=== PATIENT | male | born 1980 | race Caucasian/White ===

== ENCOUNTER 2019-05-19 10:15 | Emergency (ER) | payer OTHER, SELFPAY ==
[2019-05-19 10:31] VITALS: BP 145/75; PULSE 95; RESP 20; TEMP 37.4; O2SAT 97
--- NOTE | 2019-05-19 11:21 | ED.URI ---
HPI - URI/Sore Throat General Chief Complaint: Upper Respiratory Infection Stated Complaint: cough/sore throat/headache Time Seen by Provider: 05/19/19 11:10 Source: patient, family and RN notes reviewed Mode of arrival: ambulatory Limitations: no limitations History of Present Illness HPI Narrative: 39-year-old male accompanied by presents to express care with complaints of cough, sore throat,chest is sore from coughing, nasal drainage and headache for the past 24 hours. Patient states that last night he had chills but no fevers, has taken Tylenol for his throat pain. Patient states that his throat is painful to swallow, denies any shortness of breath, palpitations or acute chest pressure. MD elicited complaint: fever, cough, sore throat, rhinorrhea, nasal congestion and other (headache) Pertinent past history: other (tobacco) Onset (ago): day(s) (1) Consistency: constant Severity: moderate Pain scale (0-10): 4 Description of mucous: clear Able to tolerate fluids by mouth: Yes Exacerbating factors: swallowing, exertion and deep breaths Relieving factors: nothing Associated symptoms: chills, headache, rhinorrhea, nasal congestion, sore throat and cough Treatments prior to arrival: acetaminophen Related Data Home Medications Medication Instructions Recorded Confirmed lisinopril 05/19/19 Allergies Allergy/AdvReac Type Severity Reaction Status Date / Time aloe Allergy Unknown HIVES Verified 07/22/18 10:53 Review of Systems Review of Systems: Narrative: CONSTITUTIONAL: no fevers,states chills, or sweats. EYES: Denies visual changes, redness, or discharge. ENT: positive rhinorrhea, congestion, sore throat, no otalgia. CARDIOVASCULAR: Denies chest pain, palpitations, or edema. RESPIRATORY:positive cough denies dyspnea. GASTROINTESTINAL: Denies abdominal pain, nausea, vomiting, or diarrhea. GENITOURINARY: Denies dysuria or hematuria. SKIN: Denies rash or itching. MUSCULOSKELETAL: Denies back pain, joint pain, or myalgia. NEUROLOGIC: positive headache, numbness, or weakness. PSYCHIATRIC: Denies anxiety or depression. All systems reviewed & are unremarkable except as noted in HPI and below PMFSH Past Medical History Medical History (Updated 05/19/19 @ 11:45 by Bonny Dunne NP) Hypertension Obesity Surgical History Surgical History (Updated 05/19/19 @ 11:23 by Bonny Dunne NP) History of carpal tunnel release History of tonsillectomy and adenoidectomy Social History Social History (Updated 05/19/19 @ 12:31 by Bonny Dunne NP) Smoking packs per day: 0.5 Smoking cigarettes per day: 10.0 Years smoked: 20 Smoking pack-years: 10.00 Smoking status: Current every day smoker Tobacco type: cigarettes Living arrangements: with family Gender identity (if verbalized by the patient): Male Comments At time of signature, agree with nursing past medical, surgical, social history. There is no relevant family history pertinent to the presenting complaint Exam Narrative: Exam Narrative: GENERAL: Well-appearing, well-nourished, and in no acute distress. HEAD: Normocephalic, atraumatic. EYES: PERRLA and EOMI. ENT: Nares red, clear rhinorrhea no epistaxis. Mucous membranes moist.TM's normal with good light reflex, throat red with uvula red and swollen, no tonsil enlargement,no exudate or lesions NECK: Supple.lymphadenopathy CHEST: Clear to auscultation. No respiratory distress.SAO2 97% on room air HEART: Regular rate and rhythm. No murmur heard. Normal peripheral pulses. ABDOMEN: Soft, non tender, non distended, normal active bowel sounds. EXTREMITIES: Normal range of motion. No edema. SKIN: Warm, dry, no rash. NEURO: No focal deficits. Alert and oriented x3. Course Vital Signs Vital signs: Vital Signs Temperature 37.4 C 05/19/19 10:31 Pulse Rate 95 05/19/19 10:31 Respiratory Rate 20 05/19/19 10:31 Blood Pressure 145/75 H 05/19/19 10:31 Pulse Oximetry 97 05/19/19 10:31
== END 2019-05-19 12:19 | disposition home or self-care (01) ==
PROVIDERS: Emergency Provider Registered Nurse
DX: J06.9 Acute upper respiratory infection, unspecified (principal); R05 Cough; J02.9 Acute pharyngitis, unspecified; F17.210 Nicotine dependence, cigarettes, uncomplicated; I10 Essential (primary) hypertension; E66.9 Obesity, unspecified; Z68.42 Body mass index [BMI] 45.0-49.9, adult
CPT/HCPCS: 87081; 87880; 99213; G0463

== ENCOUNTER 2019-05-31 15:31 | Emergency (ER) | payer OTHER, SELFPAY ==
--- NOTE | ~2019-05-31 | XR_ITS ---
EXAMINATION: XR chest 2V EXAM DATE: 05/31/2019 16:01 INDICATION: Cough and shortness of breath for over a week. TECHNIQUE: Frontal and lateral projections of the chest obtained and reviewed. Comparison is made to prior examination from 08/21/2016. FINDINGS: No confluent consolidation, pneumothorax or pleural effusion suspected. Cardiomediastinal silhouette is normal. There are no osseous abnormalities identified. IMPRESSION: No acute cardiopulmonary findings. Reviewed, dictated and finalized at location A.
[2019-05-31 15:36] VITALS: BP 150/88; PULSE 84; RESP 22; TEMP 37.2; O2SAT 94
--- NOTE | 2019-05-31 15:36 | ED.GENADULT ---
HPI - General Adult General Chief complaint: Upper Respiratory Infection Stated complaint: cough fever Time Seen by Provider: 05/31/19 15:35 Source: patient Mode of arrival: ambulatory Limitations: no limitations History of Present Illness HPI narrative: 39-year-old male patient presents to the [facility] with complaints of cold symptoms for the past 2 weeks. Patient states he was seen here about a week and half ago and was diagnosed with an upper respiratory infection was given an antibiotic along with steroids. Patient states he is completed the entire course of both antibiotics and steroids but states that his symptoms have continued. Patient complaining of sore throat, cough, shortness of breath denies any fevers that he is aware of. Patient states that he is a smoker but has not been smoking recently. Patient does have a history of high blood pressure. 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 Patient does not currently have a primary doctor at this time. Related Data Home Medications Medication Instructions Recorded Confirmed lisinopril 10 mg PO DAILY 05/31/19 05/31/19 Allergies Allergy/AdvReac Type Severity Reaction Status Date / Time aloe Allergy Unknown HIVES Verified 05/31/19 16:02 Review of Systems Review of Systems: Narrative: CONSTITUTIONAL: Denies fever, chills, or sweats. EYES: Denies visual changes, redness, or discharge. ENT: Denies rhinorrhea, congestion, positive sore throat, denies otalgia. CARDIOVASCULAR: Denies chest pain, palpitations, or edema. RESPIRATORY: Positive cough with dyspnea. GASTROINTESTINAL: Denies abdominal pain, nausea, vomiting, or diarrhea. GENITOURINARY: Denies dysuria or hematuria. SKIN: Denies rash or itching. MUSCULOSKELETAL: Denies back pain, joint pain, or myalgia. NEUROLOGIC: Denies headache, numbness, or weakness. PSYCHIATRIC: Denies anxiety or depression. [facility] Past Medical History Medical History Hypertension Obesity Surgical History Surgical History History of carpal tunnel release History of tonsillectomy and adenoidectomy Social History Social History Smoking packs per day: 0.5 Smoking cigarettes per day: 10.0 Years smoked: 20 Smoking pack-years: 10.00 Smoking status: Current every day smoker Tobacco type: cigarettes Gender identity (if verbalized by the patient): Male Comments At the time of my signature I agree with nursing past medical history, surgical, social, and family history. There is no relevant family history pertinent to the presenting complaint. Exam Narrative: Exam Narrative: GENERAL: Well-appearing, well-nourished, and in no acute distress. HEAD: Normocephalic, atraumatic. EYES: PERRLA and EOMI. ENT: Nares clear, no rhinorrhea or epistaxis. Mucous membranes moist. NECK: Supple. No lymphadenopathy CHEST: Clear to auscultation. No respiratory distress. HEART: Regular rate and rhythm. No murmur heard. Normal peripheral pulses. ABDOMEN: Soft, nontender, nondistended, normal active bowel sounds. EXTREMITIES: Normal range of motion. No edema. SKIN: Warm, dry, no rash. NEURO: No focal deficits. Alert and oriented x3. Course Reevaluation(s) Reevaluation #1: Notify patient he is negative for influenza today but is positive for strep. Discussed with him that his x-ray is negative for any pneumonia at this time. Discussed with patient we will go ahead and discharge him home with an antibiotic for the strep infection along with an inhaler to help with the shortness of breath symptoms. Discussed with patient that given the fact that he may have come into contact with somebody with cold at 19 as well as his symptoms t
== END 2019-05-31 16:25 | disposition home or self-care (01) ==
PROVIDERS: Emergency Provider Nurse Practitioner Family
DX: J02.0 Streptococcal pharyngitis (principal); R05 Cough; I10 Essential (primary) hypertension; E66.9 Obesity, unspecified; F17.210 Nicotine dependence, cigarettes, uncomplicated
CPT/HCPCS: 71046; 87804; 87880; 99213; G0463

== ENCOUNTER 2020-08-11 15:51 | Outpatient (CLI) | payer BC, SELFPAY ==
[2020-08-11 16:12] LABS: Basophils Absolute Auto 0.1 K/mm3 (0.0-0.1); Basophils Percent Auto 0.6 % (0.2-1.2); Eosinophils Absolute Auto 0.4 K/mm3 (0-0.3); Eosinophils Percent Auto 3.1 % (0-4.4); Hematocrit 55.9 % (42.0-52.0); Hemoglobin 18.4 g/dL (14.0-18.0); Immature Granulocyte Absolute 0.03 K/mm3 (0.00-0.031); Immature Granulocyte Percent A 0.2 % (0-0.5); Lymphocytes Percent Auto 33.5 % (18.3-44.2); Mean Corpuscular HGB Conc 32.9 g/dl (32-36); Mean Platelet Volume 10.1 fl (7.4-10.4); Monocytes Absolute Auto 1.1 K/mm3 (0.1-0.6); Monocytes Percent Auto 8.1 % (2.6-8.5); Neutrophils Absolute Auto 7.3 K/mm3 (1.3-6.7); Neutrophils Percent Auto 54.5 % (45.5-73.1); Platelet Count Result 297 k/mm3 (150-375); Red Blood Count 6.58 M/mm3 (4.6-6.20); White Blood Count 13.4 K/mm3 (4.5-10.0)
[2020-08-11 16:25] LABS: Atypical Lymphocytes Present; Platelet Estimate Adequate (Adequate)
[2020-08-11 17:20] LABS: Alanine Aminotransferase 38 U/L (4-50); Albumin Level 4.5 g/dL (3.5-5.1); Alkaline Phosphatase 65 U/L (38-126); Anion Gap 12 mmol/L (8-16); Aspartate Amino Transferase 36 U/L (17-59); Bilirubin,Total 0.4 mg/dL (0.2-1.3); Blood Urea Nitrogen 18 mg/dL (9-20); Calcium 9.8 mg/dL (8.4-10.2); Carbon Dioxide 22 mmol/L (22-30); Chloride 107 mmol/L (98-107); Estimated Glomerular Filt Rate > 60; Glucose 86 mg/dL (75-110); Potassium 4.7 mmol/L (3.4-5.0); Sodium 141 mmol/L (137-145)
[2020-08-14 21:43] LABS: Erythropoietin (EPO) 18.5 mIU/mL (2.6-18.5)
[2020-08-15 16:41] LABS: Testosterone Free 256.4 pg/mL (35.0-155.0); Testosterone Total 906 ng/dL (250-1100)
== END 2020-08-11 15:52 | disposition home or self-care (01) ==
LOC: ANHLAB 15:59
PROVIDERS: Visit Provider Internal Medicine Hematology & Oncology
DX: D75.1 Secondary polycythemia (principal)
CPT/HCPCS: 36415; 80053; 82668; 84402; 84403; 85025

== ENCOUNTER 2021-01-22 10:56 | Emergency (ER) | payer BC, SELFPAY ==
[2021-01-22 11:03] VITALS: BP 164/86; PULSE 88; TEMP 37.2; O2SAT 97
--- NOTE | 2021-01-22 12:17 | ED.EAR ---
HPI - Ear Problem General Chief complaint: Ear Stated complaint: Left Ear pain Time Seen by Provider: 01/22/21 12:07 Source: patient and RN notes reviewed Mode of arrival: ambulatory Limitations: no limitations History of Present Illness HPI Narrative: Patient presents today complaining of left ear pain since last night that is radiating to the jaw causing a headache. Patient also has experiencing muffled hearing. He has attempted to flush his ear out with peroxide as well as using Debrox drops. He currently rates pain 4/10 and describes pain as sharp. He has tried no medication for pain prior to arrival. MD Complaint: ear pain and decreased hearing Related Data Home Medications Medication Instructions Recorded Confirmed dextroamphetamine-amphetamine 15 mg PO DAILY 01/22/21 01/22/21 losartan 25 mg PO DAILY 01/22/21 01/22/21 metformin 500 mg PO DAILY 01/22/21 01/22/21 Allergies Allergy/AdvReac Type Severity Reaction Status Date / Time aloe Allergy Unknown HIVES Verified 01/22/21 11:23 Review of Systems Review of Systems: CONSTITUTIONAL: Denies body aches, fever, chills, or sweats. EYES: Denies visual changes, redness, or discharge. ENT: Denies rhinorrhea, congestion, sore throat. + Left ear pain, decreased hearing CARDIOVASCULAR: Denies chest pain, palpitations, or edema. RESPIRATORY: Denies cough or dyspnea. GASTROINTESTINAL: Denies abdominal pain, nausea, vomiting, or diarrhea. GENITOURINARY: Denies dysuria or hematuria. SKIN: Denies rash, itching, or wounds. MUSCULOSKELETAL: Denies back pain, joint pain, or myalgia. NEUROLOGIC: Denies numbness, tingling, or weakness.+ Headache PSYCH: Denies depression or anxiety. [facility] Past Medical History Medical History (Updated 01/22/21 @ 12:25 by Oanh Tsai, RACHNA, BC) Hypertension Obesity Surgical History Surgical History History of carpal tunnel release History of tonsillectomy and adenoidectomy Social History Social History Smoking packs per day: 1 Smoking cigarettes per day: 20.0 Years smoked: 30 Smoking pack-years: 30.00 Smoking status: Current every day smoker Tobacco type: cigarettes Smokeless tobacco user: chewing tobacco Gender identity (if verbalized by the patient): Male Spiritual care concerns: No Comments At time of signature, I have reviewed and agree with nursing past medical, surgical, social and family history unless otherwise noted. Please see nursing chart for further information. There is no relevant family history pertinent to the presenting complaint Exam Narrative: GENERAL: Well-appearing, well-nourished, and in no acute distress. HEAD: Normocephalic, atraumatic. EYES: EOMI. No redness or drainage. Conjunctivae normal. ENT: Mucous membranes pink and moist. Right TM normal. Left TM normal. Left ear canal is moderately edematous and erythematous and excoriated. No movement or tragal tenderness. NECK: Normal AROM. CHEST: No respiratory distress. EXTREMITIES: Normal range of motion. No edema. SKIN: Warm, dry, no rash. Capillary refill normal. Normal skin turgor. NEURO: No focal deficits. Alert and oriented x3. Gait steady. PSYCH: Normal affect. No signs of depression or anxiety. Course Vital Signs Vital signs: Vital Signs Temperature 99 F 01/22/21 11:03 Pulse Rate 88 01/22/21 11:03 Blood Pressure 164/86 H 01/22/21 11:03 Pulse Oximetry 97 01/22/21 11:03 Temperature 99 F 01/22/21 11:03 Pulse Rate 88 01/22/21 11:03 Blood Pressure 164/86 H 01/22/21 11:03 Pulse Oximetry 97 01/22/21 11:03 Reviewed. Pt has been instructed to follow up with his PCP regarding his elevated blood pressure today. Medical Decision Making Differential Diagnosis Differential Diagnosis: Otitis media, otitis externa, ruptured TM, serous otitis, eustachian tube dysfunction, cerume
== END 2021-01-22 12:30 | disposition home or self-care (01) ==
PROVIDERS: Emergency Provider Nurse Practitioner; PCP Nurse Practitioner Adult Health
DX: H60.502 Unspecified acute noninfective otitis externa, left ear (principal); F17.210 Nicotine dependence, cigarettes, uncomplicated; F17.220 Nicotine dependence, chewing tobacco, uncomplicated; I10 Essential (primary) hypertension; E66.9 Obesity, unspecified; Z68.42 Body mass index [BMI] 45.0-49.9, adult
CPT/HCPCS: 99213; G0463

== ENCOUNTER 2021-12-11 17:50 | Emergency (ER) | payer BC, SELFPAY ==
[2021-12-11 18:00] VITALS: BP 139/86; PULSE 77; RESP 20; TEMP 36.7; O2SAT 97
--- NOTE | 2021-12-11 18:38 | ED.URI ---
HPI - URI/Sore Throat General Chief Complaint: Upper Respiratory Infection Stated Complaint: sore throat cough headache chills Time Seen by Provider: 12/11/21 18:38 Source: patient and RN notes reviewed Mode of arrival: ambulatory Limitations: no limitations History of Present Illness HPI Narrative: 41-year-old male presented for complaint of sinus pressure, congestion, sore throat, cough and diarrhea, onset yesterday. He took a negative COVID test at home today. He denies shortness of breath, wheezing, vomiting, fevers or chills. He has taken Tylenol for symptoms. MD elicited complaint: cough Related Data Home Medications Medication Instructions Recorded Confirmed losartan 25 mg tablet 25 mg PO DAILY 01/22/21 12/11/21 metformin 500 mg tablet,extended 500 mg PO DAILY 01/22/21 12/11/21 release 24 hr aspirin 81 mg tablet,delayed 81 mg PO DAILY 02/28/21 12/11/21 release (Adult Low Dose Aspirin) Allergies Allergy/AdvReac Type Severity Reaction Status Date / Time aloe Allergy Unknown HIVES Verified 12/11/21 18:10 Review of Systems Review of Systems: CONSTITUTIONAL: Endorses malaise, chills, sweats, fever EYES: Denies visual changes, redness, or discharge ENT: Per HPI CARDIOVASCULAR: Denies chest pain, palpitations, edema RESPIRATORY: Reports cough, post nasal drainage. Denies dyspnea GASTROINTESTINAL: Denies abdominal pain SKIN: Denies rash or itching MUSCULOSKELETAL: Endorses myalgia PMFSH Past Medical History Medical History Hypertension Obesity Surgical History Surgical History History of carpal tunnel release History of tonsillectomy and adenoidectomy Social History Social History Smoking packs per day: 1 Smoking cigarettes per day: 20.0 Years smoked: 30 Smoking pack-years: 30.00 Smoking status: Current every day smoker Tobacco type: cigarettes Smokeless tobacco user: chewing tobacco Gender identity (if verbalized by the patient): Male Spiritual care concerns: No Exam Narrative: GENERAL: Ill-appearing, nontoxic EYES: conjunctivae clear ENT: Mucous membranes moist. TMs pearly valdivia with dull light reflex bilaterally; no tragal tenderness. Oropharynx erythematous without lesions or exudate CHEST: Clear to auscultation, breath sounds equal. No wheezing, rhonchi, rales, or stridor. No respiratory distress, speaks in full sentences. ABD: large soft nontender HEART: Regular rate and rhythm. No murmur heard. SKIN: Warm, dry, no rash. NEURO: Alert and oriented x3. PSYCH: Normal mood and affect Course Course Emergency Course: Patient is aware of diagnosis, understands and agrees to treatment plan. Anticipatory guidance given. Patient agrees to follow-up as directed and is aware of reasons to seek care at the emergency department. Portions of this record may have been created with voice recognition software Level of Care: Express Care Visit Vital Signs Vital signs: Vital Signs Temperature 98.0 F 12/11/21 18:00 Pulse Rate 77 12/11/21 18:00 Respiratory Rate 20 12/11/21 18:00 Blood Pressure 139/86 12/11/21 18:00 Pulse Oximetry 97 12/11/21 18:00 Oxygen Delivery Room Air 12/11/21 18:00 Temperature 98.0 F 12/11/21 18:00 Pulse Rate 77 12/11/21 18:00 Respiratory Rate 20 12/11/21 18:00 Blood Pressure 139/86 12/11/21 18:00 Pulse Oximetry 97 12/11/21 18:00 Oxygen Delivery Room Air 12/11/21 18:00 reviewed MDM - URI/Sore Throat MDM Narrative Medical decision making narrative: Flu and strep negative, advised supportive measures and signs/symptoms to go to the ER. Pt is appropriate for outpt treatment and f/u. Differential Diagnosis Differential diagnosis: Likely upper respiratory infection, sinusitis and viral infection Lab Data Labs: Influenza A Screen
== END 2021-12-11 18:53 | disposition home or self-care (01) ==
PROVIDERS: Emergency Provider Nurse Practitioner Family; PCP Nurse Practitioner Adult Health
DX: J06.9 Acute upper respiratory infection, unspecified (principal); F17.210 Nicotine dependence, cigarettes, uncomplicated; F17.220 Nicotine dependence, chewing tobacco, uncomplicated; I10 Essential (primary) hypertension; E66.9 Obesity, unspecified; Z68.42 Body mass index [BMI] 45.0-49.9, adult
CPT/HCPCS: 87081; 87804; 87880; 99213; G0463

== ENCOUNTER 2024-10-25 18:23 | Emergency (ER) | payer OTHER, SELFPAY ==
--- OUTSIDE RECORDS SUMMARY | 2024-10-25 18:25 | XMS_ITS | Clinical Summary ---
Author Organization [facility] Address [address] [address] [place] [address] Phone Care Team Providers Care Retail Store Clerk Name Role Phone Unavailable Primary Care Provider Unavailabl e Allergies Active Allergy Reactions Criticality Noted Date Comments Aloe Other (See Comments) High 08/11/2020 Aloe Vera Rash Low 11/18/2019 Aloe Vera-Dimethicone Hives High 07/28/2018 Medications aspirin (SIXTO CHEWABLE) 81 mg Tablet, Chewable Take 81 mg by mouth daily. Active testosterone cypionate (DEPO-TESTOSTER ONE) 200 mg/mL Oil Inject 200 mg by intramuscular injection every 7 days. Active albuterol HFA 90 mcg inhaler Take 2 Puffs by inhalation. 0 Active losartan (COZAAR) 25 mg tablet Take by mouth. 0 Active follitropin marcella, recombinant (GONAL-F RFF PEN SUBCUT) Inject by subcutaneous injection. Active GONADORELIN HCL INJECTION 50 Units by Injection route twice weekly. Active metFORMIN (GLUCOPHAGE) 500 mg tablet Take 500 mg by mouth 2 times daily with meals. Active Active Problems Problem Noted Date Diagnosed Date Erythrocytosis 08/11/2020 Family History Medical History Relation Name Comments Cancer Father Diabetes Father Diabetes Mother Relation Name Status Comments Brother Alive Daughter Alive Father Mother Alive Sister 1 Alive Sister 2 Alive Son 1 Alive Son 2 Alive Social History Tobacco Use Types Packs/Day Years Used Date Smoking Tobacco: Former Cigarettes Q uit: 05/18/2019 Smokeless Tobacco: Never Alcohol Use Standard Drinks/Week Comments Never 0 (1 standard drink = 0.6 oz pur e alcohol) Sex and Gender Information Value Date Recorded Sex Assigned at Not on file Legal Sex Male 9:37 AM CDT Gender Identity Not on file Sexual Orientation Not on file Last Filed Vital Signs Vital Sign Reading Time Taken Comments Blood Pressure 165/11 12/29/2020 10:57 AM CDT Pulse 88 12/29/2020 10:57 AM CDT Temperature 36.9 C (98.5 F) 08/24/2020 1:31 PM CDT Respiratory Rate 13 11/20/2019 7:37 AM CDT Oxygen Saturation 95% 08/24/2020 1:31 PM CDT Inhaled Oxygen Concentration - - Weight 166.3 kg (366 lb 9.6 oz) 021 10:57 AM CDT Height 180.3 cm (5' 11) 12/29/2020 10: 57 AM CDT Body Mass Index 51.13 12/29/2020 10:57 AM CDT Plan of Treatment Health Maintenance Due Date Last Done Comments DIABETES ANNUAL FOOT EXAM 1998 DIABETES ANNUAL RETINAL EXAM 1998 DIABETES MICROALBUMIN ANNUAL SCREEN 1998 LDL CHOLESTEROL ANNUAL 1998 HEPATITIS B VACCINES (1 of 3 - 19+ 3-dose series) 1999 HPV VACCINES (1 - 3-dose SCD M series) 2007 DTAP/TDAP/TD VACCINES (1 - Tdap) 01/26/2013 01/26/20 13 DIABETES HBA1C Q 6 MONTHS 12/06/2017 06/06/2017 INFLUENZA VACCINE (#1) 2024 0, 01/26/2020, 01/15/2020, Additional history exists Insurance BS BLUE ACCESS/TRUE BLUE PPO Advance Directives For more information, please contact: [phone] * Full Code (Latest Code Status on File) Date Activated Date Inactivated Comments 11/20/2019 5:41 AM 01/08/2020 9:40 AM
--- OUTSIDE RECORDS SUMMARY | 2024-10-25 18:25 | XMS_ITS | Patient Health Record ---
Author Organization [facility] Address [address] [facility] [address] [place] [address] Care Team Providers Care Solder Technician Name Role Phone Laura Martinez Unavailable [phone] Reason For Referral No Information Medications Medication SIG (Take, Route, Frequency, Duration) Notes Start Date End Date Status Amphetamine-Dextroamph etamine 15 MG Tablet Oral 01/03/2023 Active Omeprazole 40 MG Capsule Delayed Release Oral 01/03/2023 Active Nystop 153820 UNIT/GM Powder External 01/03/2023 Active Testosterone *Pick strength-form from Night Up for eRX* 01/03/2023 Active Immunizations Vaccine Route Administration Date Status Comme nts COVID-19 (SARS-COV-2) vaccin e, unspecified Unknown 04/26/2019 Administered Social History Sex Assigned At : Social History Observation Description Sex Assigned At Male Social History Additional Details Category Social Info Options Details Migrated Social History Migrated Social History Alcohol Intake: None 05/14/2022,Tobacco Years: Current every day smoker 05/14/2022 Plan Of Treatment No Information Insurance Providers Payer Name Payer Address Payer Phone Subscriber Number Group Number Insured Name Patient Relationship to Insured Coverage Start Date Coverage End Date [facility] [address] [place] [address] [id number] DORA WALTON Self - patient is the insured Medical (General) History Surgical History Surgery Date(Month/Year) Tonsilectomy/adenoids 04/16/1989 Other 01/18/2022
--- OUTSIDE RECORDS SUMMARY | 2024-10-25 18:25 | XMS_ITS | Clinical Summary ---
Author Organization [facility] Address [address] [place] [address] Phone Care Team Providers Care Coupon And Bond Collection Clerk Name Role Phone Hyun Brothers APRN Primary Care Provider [phone] Allergies Active Allergy Reactions Criticality Noted Date Comments Aloe Vera Rash 11/18/2019 Medications HYDROcodone-arik taminophen (NORCO) 5-325 MG Tablet Take 1-2 Tabs by mouth every 4 hours as needed for Pain. 20 Tab 0 6 Active Additional Information Patient not taking.Reported on 01/29/2020 losartan (COZAAR) 25 MG Tablet Take 50 mg by mouth daily. Active aspirin 81 MG Chewable Tablet Take 325 mg by mouth daily. Active methylPREDNISol one (Medrol) 4 MG Tablet Therapy PackIndications :Cough Use as per instructions on package. 21 Tab 0 Active albuterol (ProAir HFA) 108 (90 Base) MCG/ACT Aerosol SolutionIndicat ions:Cough take 2 Puffs by inhalation every 4 hours as needed for Wheezing or Cough. 1 Inhaler 0 Active metFORMIN (GLUCOPHAGE) 500 MG Tablet Take 500 mg by mouth 2 times daily (with meals). Active metroNIDAZOLE (Flagyl) 500 MG Tablet Take 1 Tablet by mouth 3 times daily. 30 Tablet 2 Active Active Problems No known active problems Social History Tobacco Use Types Packs/Day Years Used Date Smoking Tobacco: Every Day Cigarettes Smokeless Tobacco: Current Chew Alcohol Use Standard Drinks/Week Comments No 0 (1 standard drink = 0.6 oz pur e alcohol) Sex and Gender Information Value Date Recorded Sex Assigned at Not on file Legal Sex Male 7:58 PM CDT Gender Identity Not on file Sexual Orientation Not on file Last Filed Vital Signs Vital Sign Reading Time Taken Comments Blood Pressure 158/78 08/20/2021 7:30 AM CDT Pulse 73 08/20/2021 6:45 AM CDT Temperature 36.9 C (98.4 F) 08/20/2021 3:56 AM CDT Respiratory Rate 18 08/20/2021 6:45 AM CDT Oxygen Saturation 98% 08/20/2021 6:45 AM CDT Inhaled Oxygen Concentration - - Weight 158.8 kg (350 lb) 08/20/2021 3:56 AM CDT Height 180.3 cm (5' 11) 08/20/2021 3:56 AM CDT Body Mass Index 48.82 08/20/2021 3:56 AM CDT Plan of Treatment Health Maintenance Due Date Last Done Comments Hepatitis C Virus (HCV) Screening 1980 TdaP Immunization 1980 Hepatitis B Immunization (1 of 3 - 19+ 3-dose series) 1999 Human Papillomavirus (HPV) Immunization (1 - 3-dose SCDM series) 2007 SARS-COV-2 Immunization ( season) 2023 06/16/2020, 05/21/2020, 05/19/2020 Influenza Immunization (#1) 10/26/202402/2019, 01/26/2020, 01/25/2013 Respiratory Syncytial Virus (RSV) Immunization (Adult) (1 - 1-dose 75+ series) 2055 DTaP/Tdap/Td Immunization Discontinued 01/25/2013 Meningococcal Immunization (ACWY) Aged Out No longer eligible based on patient's age to complete this topic Pneumococcal Immunization Combined Aged Out No longer eligible based on patient's age to complete this topic Rotavirus Immunization Aged Out No lo nger eligible based on patient's age to complete this topic Insurance [facility] Care Teams Coupon And Bond Collection Clerk Relationship Specialty Start Date End Date Hyun Brothers APRN PCP - General Advanced Practice Nurse 01/29/20
[2024-10-25 18:26] VITALS: BP 143/96; PULSE 96; RESP 18; TEMP 37.1; O2SAT 98
--- OUTSIDE RECORDS SUMMARY | 2024-10-25 18:31 | XMS_ITS | Clinical Summary ---
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 Gender Identity Not on file Sexual Orientation Not on file Plan of Treatment Health Maintenance Due Date Last Done Comments Annual Physical 1983 Hepatitis C 1998 Hepatitis B Vaccines (1 of 3 - 19+ 3-dose series) 1999 HPV Vaccines (1 - 3-dose SCD M series) 2007 DTaP, Tdap and Td Vaccines ( 1 - Tdap) 01/26/2013 01/25/2013 COVID-19 Vaccine (2023-2 5 season) 2023 06/16/2020, 05/21/2020, 05/19/2020 Meningococcal B Vaccine Aged Out No l onger eligible based on patient's age to complete this topic Meningococcal Vaccine Aged Out No mary arlin eligible based on patient's age to complete this topic Pneumococcal Vaccine: Pediatrics (0 to 5 Years) and At-Risk Patients (6 to 49 Years) Aged Out No longer eligible b ased on patient's age to complete this topic RSV Immunizations Under 20 Months Aged Out No longer eligible b ased on patient's age to complete this topic [facility] Care Teams Maternity Floor Supervisor Relationship Specialty [place] [address] [place] [address] PCP - General 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
--- OUTSIDE RECORDS SUMMARY | 2024-10-25 18:31 | XMS_ITS | Clinical Summary ---
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 Primary Care Provider + Allergies Active Allergy Reactions Criticality Noted Date Comments Aloe Vera Rash Medium 11/18/2019 Aloe Vera-Dimethicone Hives Medium 07/28/2018 Medications dextroamphetami ne-amphetamine XR (ADDERALL XR) 15 mg 24 hr capsule Take 15 mg by mouth every morning 04/10/2022 Active dextroamphetami ne-amphetamine (ADDERALL) 15 mg tablet TAKE 1 TABLET BY MOUTH 1 TO 2 TIMES DAILY NEEDED FOR ADHD SYMPTOMS ON DAYS WHEN XR IS NOT A GOOD OPTION 04/10/2022 Active testosterone cypionate, micro (testosterone cyp, micro, bulk,) 100 % powder 0 04/05/2022 Active omeprazole (PriLOSEC) 40 mg capsule Take 1 capsule (40 mg total) by mouth 2 (two) times a day 180 capsule 05/03/2022 Active Active Problems Problem Noted Date Diagnosed Date Esophagitis 05/08/2022 Overview (05/08/2022): Added automatically from request for surgery [id number] 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 Minimally tender. There is an area of induration in the superior portion that is nontender. Patient is currently on vancomycin and clindamycin. He had 1 more day left of Bactrim. Denies any fevers or chills. Denies any night sweats. Denies any changes in appetite or energy. Patient did have a leukocytosis of 23.6 on presentation with improvement to 16.4. ESR and CRP are both normal. 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 He states he needs to go to work. CT of the chest showed small focal inflammatory process with no definite organized fluid collection. Patient declined surgical consult inpatient but is okay with following up as an outpatient. Leukocytosis 07/29/2018 Assessment & Plan (07/29/2018 6:29 AM CDT): Patient presented with leukocytosis of 23.6 with improvement this morning to 16.4. He has a draining abscess on his right chest wall. He is currently on Vanco and clindamycin. Elevated blood pressure reading 07/29/2018 Assessment & Plan (07/29/2018 6:29 AM CDT): Patient was in pain at the time. He has never been diagnosed with hypertension. Will continue to monitor. Patient has p.r.n. Hydralazine. Will need outpatient follow-up. Morbid obesity (CMS/HCC) 07/29/2018 Immunizations Immunization Administration Dates Next Due Influenza, Quadrivalent, Spl it, Preservative Free, Intramuscular 01/25/2013 TD Preservative Free 01/25/2013 Surgical History Surgery Date Site/Laterality Comments TONGUE BIOPSY 02/25/2017 - 02/24/2018 CARPAL TUNNEL RELEASE 02/26/2016 - 02/24/2017 STOMACH SURGERY ARM SURGERY Medical History Medical History Date Comments Headache, tension-type Stomach ulcer ADHD (attention deficit hyperactivity disorder) Family History Medical History Relation Name Comments Hypertension Brother Hypertension; Diabetes Father Heart disease Father Cardiovascular disease; Hypertension Father Hypertension; C ause of : Hypertension Lung cancer Father Cancer, lung; C ause of : Cancer, lung Diabetes Mother Diabetes mellit us; Hypertension Mother Hypertension; Other Other 1 Family history of NA; Lung cancer Other 2 Family history of Cancer, lung; Diabetes type II Other 3 Family hist ory of Diabetes mellitus type 2; Osteoarthritis Other 4 Family histor y of Osteoarthritis; Other Sister 2 Alive and well; Relation Name Status Comments Brother Father (Age 56) Mother Other 1 Other 2 Other 3 Other 4 Sister 1 Alive Sister 2 Social History Tobacco Use Types Packs/Day Years Used Date Smoking Tobacco: Every Day Cigarettes Smokeless Tobacco: Current Chew Tobacco Cessation:Ready to Q uit: Not Asked; Counseling Given: Not Answered Comments:& vape Alcohol Use Standard Drinks/Week Comments No 0 (1 standard drink = 0.6 oz pur e alcohol) AUDIT-C Answer Date Recorded Q1: How often do you have a drink containing alcohol? Never 05/03/2022 Q2: How many drinks containi ng alcohol do you have on a typical day when you are drinking? Patient does not drink Q3: How often do you have si x or more drinks on one occasion? 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 Gender Identity Male 09/01/2019 8:41 AM CDT Sexual Orientation Straight 09/01/2019 8: 41 AM CDT Obstetrics History Last Filed Vital Signs Vital Sign Reading Time Taken Comments Blood Pressure 143/100 05/03/2022 2:14 PM SLOT FLOOR SUPERVISOR Pulse 88 05/03/2022 2:14 PM SLOT FLOOR SUPERVISOR Temperature 36 C (96.8 F) 05/03/2022 1:54 PM SLOT FLOOR SUPERVISOR Respiratory Rate 17 05/03/2022 2:14 PM SLOT FLOOR SUPERVISOR Oxygen Saturation 96% 05/03/2022 2:14 PM SLOT FLOOR SUPERVISOR Inhaled Oxygen Concentration - - Weight 130.6 kg (288 lb) 05/03/2022 11:46 AM SLOT FLOOR SUPERVISOR Height 180.3 cm (5' 11) 05/03/2022 11:46 AM SLOT FLOOR SUPERVISOR Body Mass Index 40.17 05/03/2022 11:46 AM SLOT FLOOR SUPERVISOR Plan of Treatment Health Maintenance Due Date Last Done Comments Albumin Creatinine Ratio, Urine 1980 Hepatitis C Screening 1980 Dilated Eye Exam 1980 Foot Exam 1980 Varicella Vaccines (1 of 2 - 13+ 2-dose series) 1993 Hepatitis B Screening 1998 Regular Well Visit/Exam 18-64 1998 Pneumococcal vaccine <65 (1 of 2 - PCV) 1999 HPV Vaccines (1 - 3-dose SCD M series) 2007 DTaP/Tdap/Td Vaccine (1 - Tdap) 01/26/2013 3 Depression Screening 07/29/2019 07/28/2018 Hemoglobin A1C 10/27/2022 04/26/2022 Lipid Panel 04/27/2023 04/26/2022 eGFR 04/27/2023 04/26/2022, 02/26, 07/29/2018, Additional history exists Influenza Vaccine (#1) 2024 01/26/2020, 2012 Procedures Procedure Name Priority Date/Time Associated Diagnosis Comments EGFR Routine 04/26/2022 9:30 AM SLOT FLOOR SUPERVISOR Bariatric surgery status HEMOGLOBIN A1C Routine 04/26/2022 9:30 AM SLOT FLOOR SUPERVISOR Bariatric surgery status LIPID PANEL Routine 04/26/2022 9:30 AM SLOT FLOOR SUPERVISOR Bariatric surgery status from Last 3 Months or Most Recently Relevant to Health Maintenance Results * eGFR (04/26/2022 9:30 AM SLOT FLOOR SUPERVISOR) eGFR 113 mL/min/1. 73 m2 [facility] Comment: Interpretive Data Reference Interval Normal >/= 90 mL/min/1.73m2 Mildly decreased* 60 - 89 mL/min/1.73m2 Mildly to moderately decreased 45 - 59 mL/min/1.73m2 Moderately to severely decreased 30 - 44 mL/min/1.73m2 Severely decreased 15 - 29 mL/min/1.73m2 Kidney Failure < 15 mL/min/1.73m2 *Relative to young adult level Estimated glomerular filtration rate is determined by the 2020 CKD-EPI equation recommended by the National Kidney Foundation (A Unifying Approach to GFR Estimation: Recommendations of the NKF-ASK Task Force on Reassessing the Inclusion of Race in Diagnosing Kidney Disease, JASN 202). The CKD-EPI equation should not be used for patients with unstable renal function and has not been validated in children and those over 70. Current interpretive data was last reviewed 2020. Blood 04/26/2022 9:30 AM SLOT FLOOR SUPERVISOR 04/26/2022 9:42 AM SLOT FLOOR SUPERVISOR Meme Blunt MD LAB BLOOD ORDERABLES Fi nal Result Performing Organization Address [facility] Co de Phone Number [facility] [id number] [address] [facility] [employer] [place], [place] [id number] * Hemoglobin A1c (04/26/2022 9:30 AM SLOT FLOOR SUPERVISOR) Hgb A1C 5.1 4.0 - 5.6 % [facility] Estimated Average Glucose 100 mg/dL [facility] Comment: The ADA recommends reporting an estimated Average Glucose (eAG) with all Hemoglobin A1c results using the equation derived from a study of 507 normal and diabetic adults. Minority populations were underrepresented and children were not included. (Diabetes Care 31:1651-5417, 2008). The eAG is not equivalent to a fasting glucose. Blood 04/26/2022 9:30 AM SLOT FLOOR SUPERVISOR 04/26/2022 9:42 AM SLOT FLOOR SUPERVISOR Meme Blunt MD LAB BLOOD ORDERABLES Fi nal Result Performing Organization Address City/[facility]/ZIP Co de Phone Number [facility] [address] [address] [facility] [employer] [place], [place] [id number] * (ABNORMAL) Lipid panel (04/26/2022 9:30 AM SLOT FLOOR SUPERVISOR) Cholesterol 157 30 - 199 mg/dL [facility] Comment: Interpretive Data Ages < or = 19 years Acceptable: <170 mg/dL Borderline high: 170-199 mg/dL High: >or= 200 mg/dL Ages > or = 20 years Desirable: <200 mg/dL Borderline high: 200-239 mg/dL High: >or= 240 mg/dL Literature References: 1. Expert Panel on Integrated Guidelines for Cardiovascular Health and Risk Reduction in Children and Adolescents. Pediatrics 2011;128:S213 2. NCEP Expert Panel. Circulation 2004;110:227 Current Interpretive Data was last revised on 2017. Triglycerides 109 <=149 mg/dL [facility] Comment: Interpretive Data Ages < or = 9 years Acceptable: <75 mg/dL Borderline high: 75-99 mg/dL High: >or= 100 mg/dL Ages 10 to 20 years Acceptable: <90 mg/dL Borderline high: 90-129 mg/dL High: >or= 130 mg/dL Ages > or = 20 years Desirable: <150 mg/dL Borderline high: 150-199 mg/dL High: 200-499 mg/dL Very high: >or= 499 mg/dL Literature References: 1. Expert Panel on Integrated Guidelines for Cardiovascular Health and Risk Reduction in Children and Adolescents. Pediatrics 2011;128:S213 2. NCEP Expert Panel. Circulation 2004;110:227 Current Interpretive Data was last revised on 2017. HDL 30(L) >=40 mg/dL [facility] Comment: Interpretive Data Ages < or = 19 years Acceptable: >45 mg/dL Borderline low: 40-45 mg/dL Low: <40 mg/dL Ages > or = 20 years Desirable: >or= 60 mg/dL Low: <40 mg/dL Literature References: 1. Expert Panel on Integrated Guidelines for Cardiovascular Health and Risk Reduction in Children and Adolescents. Pediatrics 2011;128:S213 2. NCEP Expert Panel. Circulation 2004;110:227 Current Interpretive Data was last revised on 2017. LDL, calculated 105 <=129 mg/dL [facility] Comment: Interpretive Data Ages < or = 19 years Acceptable: <110 mg/dL Borderline high: 110-129 mg/dL High: >or= 130 mg/dL Ages > or = 20 years Optimal: <100 mg/dL Near optimal: 100-129 mg/dL Borderline high: 130-159 mg/dL High: >160 mg/dL Literature References: 1. Expert Panel on Integrated Guidelines for Cardiovascular Health and Risk Reduction in Children and Adolescents. Pediatrics 2011;128:S213 2. NCEP Expert Panel. Circulation 2004;110:227 Current Interpretive Data was last revised on 2017. Non-HDL Cholesterol 127 mg/dL [facility] Comment: Interpretive Data Ages < or = 19 years Acceptable: <120 mg/dL Borderline high: 120-144 mg/dL High: >145 mg/dL Ages > or = 20 years When triglycerides are >200 mg/dL, Non-HDL cholesterol is a secondary target of therapy with treatment goals that are 30 mg/dL greater than the LDL cholesterol target. Literature References: 1. Expert Panel on Integrated Guidelines for Cardiovascular Health and Risk Reduction in Children and Adolescents. Pediatrics 2011;128:S213 2. NCEP Expert Panel. Circulation 2004;110:227 Current Interpretive Data was last revised on 2017. Chol/HDL ratio 5 [facility] Blood 04/26/2022 9:30 AM SLOT FLOOR SUPERVISOR 04/26/2022 9:42 AM SLOT FLOOR SUPERVISOR us Meme Blunt MD LAB BLOOD ORDERABLES Ed ited Result - Final [facility] [address] [facility]. [facility] [place] [address] from Last 3 Months or Most Recently Relevant to Health Maintenance Additional Health Concerns Infection Onset Date Last Indicated MDR gram neg/ESBL Comment:Patients who received care at a healthcare facility outside of the [place] will be placed in Contact Precautions until infection or colonization with specific highly resistant bacteria can be ruled out. Infection Prevention will arrange screening. Please contact Infection Prevention. 03/22/2022 03/22/2022 Insurance [facility] [place] Advance Directives For more information, please contact: [phone] * Full Code (Latest Code Status on File) Date Activated Date Inactivated Comments 05/03/2022 11:46 AM 05/03/2022 6:51 PM * Full Code Date Activated Date Inactivated Comments 07/29/2018 12:14 AM 07/29/2018 1:31 PM Care Teams Employment Training Specialist Relationship Specialty Start Date End Date Kalyn Francois NP PCP - General Nurse Practitioner 03/22/22
--- NOTE | 2024-10-25 18:41 | ED_ITS ---
HPI - Skin/Abscess/Foreign Bdy General Chief complaint: Skin/Abscess/Foreign Body Stated complaint: Poison Mela Time Seen by Provider: 10/25/24 18:41 Source: patient Mode of arrival: ambulatory Limitations: no limitations History of Present Illness HPI narrative: 44-year-old male presented for complaint of red itchy rash to both arms and legs spreading for over 11 days. Rash started after clearing brush outside. Patient completed a Medrol Dosepak today as prescribed by PCP along with antibiotic ointment and triamcinolone cream. He says he has had no improvement and rash is worsening. Now spreading to abdomen. Denies lip, tongue, or throat swelling, shortness of breath or wheezing. Denies changes to soap, detergent, lotion, or any other exposures. Related Data Allergies Allergy/AdvReac Type Severity Reaction Status Date / Time aloe Allergy Unknown HIVES Verified 10/25/24 18:39 Review of Systems Review of Systems: CONSTITUTIONAL: Denies body aches, fever, chills, or sweats. EYES: Denies visual changes, redness, or discharge. ENT: Denies rhinorrhea, congestion CARDIOVASCULAR: Denies chest pain, palpitations, or edema. RESPIRATORY: Denies cough or dyspnea. GASTROINTESTINAL: Denies abdominal pain, nausea, vomiting, or diarrhea. SKIN: Reports rash MUSCULOSKELETAL: Denies back pain, joint pain, or myalgia. NEUROLOGIC: Denies headache, numbness, tingling, or weakness. [facility] Past Medical History Medical History (Updated 10/25/24 @ 18:55 by Elizabeth Stringer APRN) Obesity Hypertension Surgical History Surgical History History of carpal tunnel release History of tonsillectomy and adenoidectomy Social History Social History Smoking packs per day: 1 Smoking cigarettes per day: 20.0 Years smoked: 30 Smoking pack-years: 30.00 Smoking status: Current every day smoker Tobacco type: cigarettes Smokeless tobacco user: chewing tobacco Living arrangements: with family Gender identity (if verbalized by the patient): Male Spiritual care concerns: No Comments At time of signature, I have reviewed and agree with nursing past medical, surgical, social and family history unless otherwise noted. Please see nursing chart for further information. There is no relevant family history pertinent to the presenting complaint Exam Narrative: GENERAL: Well-appearing EYES: conjunctivae clear, and EOMI. ENT: Mucous membranes moist. Oropharynx without edema, erythema or lesions. NECK: Supple. No lymphadenopathy CHEST: Clear to auscultation. HEART: Regular rate and rhythm. SKIN: Warm, dry. bilateral arms and legs with diffuse large patches of erythematous vesicles consistent with contact dermatitis, some serous drainage noted, scabbing noted, left lower leg with mild swelling and erythema consistent with cellulitis. Few scattered areas to lower abdomen NEURO: Alert and oriented x3. Course Course Emergency Course: Patient is aware of diagnosis, understands and agrees to treatment plan. Anticipatory guidance given. Patient agrees to follow-up as directed and is aware of reasons to seek care at the emergency department. Portions of this record may have been created with voice recognition software Level of Care: Express Care Visit Vital Signs Vital signs: Vital Signs Temperature 98.7 F 10/25/24 18:26 Pulse Rate 96 10/25/24 18:26 Respiratory Rate 18 10/25/24 18:26 Blood Pressure 143/96 H 10/25/24 18:26 Pulse Oximetry 98 10/25/24 18:26 Oxygen Delivery Room Air 10/25/24 18:26 Temperature 98.7 F 10/25/24 18:26 Pulse Rate 96 10/25/24 18:26 Respiratory Rate 18 10/25/24 18:26 Blood Pressure 143/96 H 10/25/24 18:26 Pulse Oximetry 98 10/25/24 18:26 Oxygen Delivery Room Air 10/25/24 18:26 Reviewed MDM - Skin/Abscess/Foreign Bdy MDM Narrative Medical decision making narrative: Discussed physical exam findings. Reviewed RXs will restart steroids, add abx and pepcid. Advised supportive measures and signs/symptoms to go to the ER. Pt is appropriate for outpt treatment and f/u. Differential Diagnosis Differential diagnosis: Likely abscess of skin or subcutaneous tissue, viral exanthem, dermatophytosis, urticaria, herpes zoster, cellulitis, eczema, insect bites, impetigo and contact dermatitis Discharge Plan Discharge Clinical Impression: Contact dermatitis, Cellulitis Patient Disposition: Home Condition: Stable Instructions: Antibiotic Form, Poison Mela (ED) Additional Instructions: Take steroids and Pepcid as directed. You can take Claritin or Zyrtec according to package directions as well for itching Cool compresses to the sites of itching, avoid hot water. Avoid scratching to reduce the risk of infection Keep areas clean and dry Take antibiotic as directed Follow up with your primary care provider as needed in 1 week Go to the ER for worsening symptoms or concerns (lip, tongue, throat swelling/itching, trouble breathing etc) Patient Language: Canadian Prescriptions: New famotidine [Pepcid] 40 mg tablet 40 mg PO DAILY Qty: 10 0RF prednisone 20 mg tablet 20 mg PO DAILY Qty: 18 0RF Rx Instructions: take 3 tablets daily for 3 days, then 2 tablets daily for 3 days then 1 tablet daily for 3 days cephalexin 500 mg capsule 500 mg PO Q6H 5 Days Qty: 20 0RF Follow-up/Referrals: Hyun Brothers APRN [Primary Care Provider, [facility]] Time of Disposition: 18:50
== END 2024-10-25 18:53 | disposition home or self-care (01) ==
PROVIDERS: Emergency Provider Nurse Practitioner Family; PCP Nurse Practitioner Adult Health
DX: L25.9 Unspecified contact dermatitis, unspecified cause (principal); L03.116 Cellulitis of left lower limb; F17.210 Nicotine dependence, cigarettes, uncomplicated; F17.220 Nicotine dependence, chewing tobacco, uncomplicated; I10 Essential (primary) hypertension; E66.9 Obesity, unspecified; Z68.36 Body mass index [BMI] 36.0-36.9, adult
CPT/HCPCS: 99213; G0463

== ENCOUNTER 2025-02-03 18:39 | Emergency (ER) | payer OTHER, SELFPAY ==
[2025-02-03 18:43] VITALS: BP 148/92; PULSE 89; RESP 16; TEMP 36.7; O2SAT 100
--- NOTE | 2025-02-03 19:24 | ED.UPPEXIN ---
HPI - Extremity Injury (Upper) General Chief Complaint: Extremity Injury, Upper Stated Complaint: Left Elbow/Hand Swelling and Pain Time Seen by Provider: 02/03/25 19:00 Source: patient, RN notes reviewed and old records reviewed Mode of arrival: ambulatory Limitations: no limitations History of Present Illness HPI narrative: 44 year old male accompanied by with complaints of having some left elbow pain starting Saturday with no known injury. Patient reports that he has had progressive pain from lateral posterior aspect of his left elbow and going down his left arm to his hand with burning sensation to 3rd 4th and 5th fingers.. Patient reports that he had swelling and redness to his left arm for the past few days. Patient reports that he put on an elastic brace like for tennis elbow during the day yesterday and took off at night which initially did help the discomfort but swelling and redness to left forearm continued. Unable to actually feel the pulse in left radial aspect but strong pulses to left arm present with doppler with nailbeds having brisk capillary refill. patient reports that he has had carpal tunnel surgery on that hand in the past. Onset (ago): day(s) (4 days with no injury) Handedness: ambidextrous Severity scale (1-10): 7 Treatments prior to arrival: cold therapy and other (Tylenol) Related Data Allergies Allergy/AdvReac Type Severity Reaction Status Date / Time aloe Allergy Severe Swelling Verified 02/03/25 19:06 of Lip/Tongue/Throat Review of Systems Review of Systems: CONSTITUTIONAL: Denies fever, chills, or sweats. EYES: Denies visual changes, redness, or discharge. ENT: Denies rhinorrhea, congestion, sore throat, or otalgia. CARDIOVASCULAR: Denies chest pain, palpitations, or edema. RESPIRATORY: Denies cough or dyspnea. GASTROINTESTINAL: Denies abdominal pain, nausea, vomiting, or diarrhea. GENITOURINARY: Denies dysuria or hematuria. SKIN: Denies rash or itching. MUSCULOSKELETAL: Denies back pain, joint pain, or myalgia.Positive for pain to the left arm from posterior elbow down arm and into his hand with burning sensation to the 3rd,4th and 5th fingers of his left hand. Patient has some swelling and redness of his left arm with pulses strong per Doppler to radial and brachial aspects, nail beds have brisk capillary refill, full mobility of left arm and hand NEUROLOGIC: Denies headache, numbness, or weakness. PSYCHIATRIC: Denies anxiety or depression. All systems reviewed & are unremarkable except as noted in HPI and below PMFSH Past Medical History Medical History (Updated 02/04/25 @ 17:11 by Bonny Dunne APRN) Sleep apnea Obesity Hypertension Surgical History Surgical History History of carpal tunnel release History of tonsillectomy and adenoidectomy Social History Social History (Updated 02/03/25 @ 19:55 by Bonny uDnne APRN) Smoking packs per day: 0.5 Smoking cigarettes per day: 10.0 Years smoked: 30 Smoking pack-years: 15.00 Smoking status: Current every day smoker Tobacco type: cigarettes Smokeless tobacco user: chewing tobacco Living arrangements: with family Gender identity (if verbalized by the patient): Male Spiritual care concerns: No Comments At time of signature, agree with nursing past medical, surgical, social and family history. There is no relevant family history pertinent to the presenting complaint Exam Narrative: GENERAL: Well-appearing, well-nourished, and in no acute distress. HEAD: Normocephalic, atraumatic. EYES: PERRLA and EOMI. ENT: Nares clear, no rhinorrhea or epistaxis. Mucous membranes moist.TM's normal with throat pink tonsils absent NECK: Supple.no lymphadenopathy CHEST: Clear to auscultation. No respiratory distress.SAO2 100% on room air HEART: Regular rate and rhythm. No murmur heard. Normal peripheral pulses. ABDOMEN: Soft, nontender, nondistended, normal active bowel sounds. EXTREMITIES: Normal range of motion. noted edema to the left arm. Patient has pain from posterior elbow aspect running down into hand with burning to 4th,5th and 6th fingers with pain, Patient has full mobility of left arm and hand and fingers pulses strong with us of Doppler unable to palpate pulses well by fingertip due to swelling. Patient reports no history of any abnormal blood clotting history or any family blood dyscrasia SKIN: Warm, dry, no rash, no open skin areas on left arm or hand. NEURO: No focal deficits. Alert and oriented x3. Course Course Level of Care: Express Care Visit Vital Signs Vital signs: Vital Signs Temperature 36.7 C 12/10/25 18:43 Pulse Rate 89 02/03/25 18:43 Respiratory Rate 16 02/03/25 18:43 Blood Pressure 148/92 H 02/03/25 18:43 Pulse Oximetry 100 02/03/25 18:43 Oxygen Delivery Room Air 02/03/25 18:43 Temperature 36.7 C 02/03/25 18:43 Pulse Rate 89 02/03/25 18:43 Respiratory Rate 16 02/03/25 18:43 Blood Pressure 148/92 H 02/03/25 18:43 Pulse Oximetry 100 02/03/25 18:43 Oxygen Delivery Room Air 02/03/25 18:43 reviewed MDM MDM Narrative Medical decision making narrative: Patient presents with pain swelling and burning sensation to his left hand with increasing symptoms since Saturday with no injury. Patient instructed to avoid any tight constrictive bands to his left arm, to elevate as much as possible, 5 days of oral steroids and kapoor medication as prescribed.Patient to call his PCP in Am for referral to either ortho or hand surgeon for any further evaluation. Patient received anticipatory guidance and reasons to seek care in ED reviewed with understanding voiced. Differential Diagnosis Differential Diagnosis: Differential diagnostic considerations for upper extremity injury include sprain/strain of wrist, fracture of wrist, finger sprain, dislocation of finger, fracture of hand, dislocation of shoulder, fracture of humerus, fracture of clavicle, laceration, tendon injury, carpal tunnel syndrome.? Critical Care Time Critical Care Time Critical Care Time: No Discharge Plan Discharge Clinical Impression: Pain and swelling of left forearm, Tendinitis Patient Disposition: Home Condition: Stable Instructions: Tendinitis (ED), Arm Pain (ED) Additional Instructions: Tylenol for lesser pain Ibuprofen regularly for the next 2-3 days for the inflammation Prednisone daily starting in am at 40 mg daily for 5 days. Follow-up with orthopedic surgeon or hand surgeon per recommendation, yinka your PCP for referral tomorrow Follow-up with PCP if further problems or concerns Ice to the area 20-30 minutes 4-6 times a day Elevate above heart If your symptoms persist, change or worsen significantly before you can contact your personal physician then please, without delay, go to the emergency department for further evaluation. Follow-up with PCP in 7-10 days or sooner if needed Follow up with PCP soon in regards to your blood pressure which is elevated above threshold for referral. Blood pressure above 120/80 may indicate pre-hypertension. 148/92 Patient Language: Macedonian Prescriptions: New prednisone 20 mg tablet 40 mg PO DAILY Qty: 10 0RF hydrocodone-acetaminophen 7.5-325 mg tablet 1 tablet PO Q8H PRN (Reason: pain) Qty: 10 0RF Follow-up/Referrals: Hyun Brothers APRN [Primary Care Provider, [facility]] Time of Disposition: 20:03 Quality Bhargav Coma Scale Eyes: Open Verbal: Oriented and Alert Motor: Follows Commands Weston Coma Total Score: 15
--- OUTSIDE RECORDS SUMMARY | 2025-02-03 21:16 | XMS_ITS | Clinical Summary ---
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/19 History [...] on file Legal Sex Male 5:45 PM WEATHER ANALYST Gender Identity Male 09/01/2019 8:41 AM CDT Sexual Orientation Straight 09/01/2019 8: 41 AM CDT Last Filed Vital Signs Vital Sign Reading Time Taken Comments Blood Pressure 143/100 05/03/2022 2:14 PM WEATHER ANALYST Pulse 88 05/03/2022 2:14 PM WEATHER ANALYST Temperature 36 C (96.8 F) 05/03/2022 1:54 PM WEATHER ANALYST Respiratory Rate 17 05/03/2022 2:14 PM WEATHER ANALYST Oxygen Saturation 96% 05/03/2022 2:14 PM WEATHER ANALYST Inhaled Oxygen Concentration - - Weight 130.6 kg (288 lb) 05/03/2022 11:46 AM WEATHER ANALYST Height 180.3 cm (5' 11) 05/03/2022 11:46 AM WEATHER ANALYST Body Mass Index 40.17 05/03/2022 11:46 AM WEATHER ANALYST Plan of Treatment Health Maintenance Due Date [...] Diagnosis Comments EGFR Routine 04/26/2022 9:30 AM WEATHER ANALYST Bariatric surgery status HEMOGLOBIN A1C Routine 04/26/2022 9:30 AM WEATHER ANALYST Bariatric surgery status LIPID PANEL Routine 04/26/2022 9:30 AM WEATHER ANALYST Bariatric surgery status from Last 3 Months or Most Recently Relevant to Health Maintenance Results * eGFR (04/26/2022 9:30 AM WEATHER ANALYST) Pathologist [facility] eGFR 113 mL/min/1. 73 m2 [facility] Comment: Interpretive Data Reference Interval Normal >/= [...] of Race in Diagnosing Kidney Disease, JASN 2020). The CKD-EPI equation should not be used for patients with unstable renal function and has not been validated in children and those over 70. Current interpretive data was last reviewed 2020. Blood 04/26/2022 9:30 AM WEATHER ANALYST 04/26/2022 9:42 AM WEATHER ANALYST Meme Blunt MD LAB BLOOD ORDERABLES nal Result Performing Organization Address [facility] Co de Phone Number [facility] [id number] [employer] [facility] [employer] [place], [place] [id number] * Hemoglobin A1c (04/26/2022 9:30 AM WEATHER ANALYST) Hgb A1C 5.1 4.0 - 5.6 % N[facility]OLAS DARBY Estimated Average Glucose 100 mg/dL [facility] Comment: The ADA recommends reporting an estimated Average Glucose (eAG) with all Hemoglobin A1c results using the equation derived from a study of 507 normal and diabetic adults. Minority populations were underrepresented and children were not included. (Diabetes Care 31:1947-5658, 2008). The eAG is not equivalent to a fasting glucose. Blood 04/26/2022 9:30 AM WEATHER ANALYST 04/26/2022 9:42 AM WEATHER ANALYST Meme Blunt MD LAB BLOOD ORDERABLES Fi nal Result Performing Organization Address City/[facility]/ZIP Co de Phone Number [facility] [id number] [employer]. [facility] [place] [address] * (ABNORMAL) Lipid panel (04/26/2022 9:30 AM WEATHER ANALYST) Cholesterol 157 30 - 199 mg/dL [facility] Comment: Interpretive Data Ages < or [...] Pediatrics 2011;128:S213 2. NCEP Expert Panel. Circulation 2003;110:227 Current Interpretive Data was last revised on [...] 5 [facility] Blood 04/26/2022 9:30 AM WEATHER ANALYST 04/26/2022 9:42 AM WEATHER ANALYST Meme Blunt MD LAB BLOOD ORDERABLES Ed ited Result - Final [facility] [id number] [facility]. [facility] [place] [address] from Last 3 Months or Most Recently [...] Please contact Infection Prevention. 03/22/2022 03/22/2022 Insurance [facility] [place] [place] For more information, please contact: [phone] * Full Code (Latest Code Status on File) Date Activated Date Inactivated Comments 05/03/2022 11:46 AM 05/03/2022 6:51 PM * Full Code Date Activated Date Inactivated Comments 07/29/2018 12:14 AM 07/29/2018 1:31 PM Care Teams Vice President Risk Management Relationship Specialty Start Date End Date Kalyn Francois NP PCP - General Nurse Practitioner 03/22/22
--- OUTSIDE RECORDS SUMMARY | 2025-02-03 21:16 | XMS_ITS | Clinical Summary ---
Author Organization [facility] Address [address] [place] [address] Phone Care Team Providers Care Esthetician/Owner Name Role Phone Hyun Brothers APRN Primary Care Provider [phone] Allergies Active Allergy Reactions Criticality Noted Date [...] Virus (HCV) Screening 1980 TdaP Immunization 1980 Varicella Immunization (1 of 2 - 13+ 2-dose series) 1993 Hepatitis B Immunization (1 of 3 - 19+ 3-dose series) 1999 Influenza Immunization (#1) 2024 120 02/2019, 01/26/2020, 01/25/2013 SARS-COV-2 Immunization (2024- season) 2024 06/16/2020, 05/21/2020, 05/19/2020 Respiratory Syncytial Virus (RSV) Immunization (Adult) (1 - 1-dose 75+ series) 2055 DTaP/Tdap/Td Immunization Discontinued 01/25/2013 Human Papillomavirus (HPV) Immunization (No Doses Required) Completed Meningococcal Immunization (ACWY) Aged Out No longer eligible based on patient's age to complete this topic Pneumococcal Immunization Combined Aged Out No longer eligible based on patient's age to complete this topic Rotavirus Immunization Aged Out No lo nger eligible based on patient's age to complete this topic Insurance [facility] Care Teams Esthetician/Owner Relationship Specialty Start Date End Date Hyun Brothers APRN PCP - General Advanced Practice Nurse 01/29/20
--- OUTSIDE RECORDS SUMMARY | 2025-02-03 21:16 | XMS_ITS | Data Portability ---
Author Organization [place] [facility], Main Office Address [address] [place] [address] Assessment Encounter Date Assessment Date Assessment LastModified by Organization Details LastModified Time 05/28/2022 05/28/2022 Assessment: Very severe KAREN, AHI = 109 Hypertension Plan: The following were reviewed and explained to the patient: primary care/referral note [facility] split night sleep study 08/23/19 BMI = 53, AHI = 109, ResMed AirFit F20 full face mask @ 22/16 cmH2O PAP compliance downloaded and interpreted x 20 minutes. Data reviewed and explained to the patient. Average apnea/hypopnea index (AHI) is 0.2. Patient used PAP > 4 hours 96% of the time. PAP is set at 24/14 cmH2O. PAP will be reset at 14-24/4-14 cmH2O. Oxygen supplementation: none Patient is benefiting from PAP therapy. Encouraged patient to maintain PAP use more than 70% of the time. Statement of PAP use and benefits will be sent to the home care store. Educated the patient on problems and solutions associated with positive airway pressure (PAP) use. Difficulty tolerating pressure, mask leaks, intolerance of interface, nasal congestion, claustrophobic response, dry mouth, and unintentional mask removal during sleep were covered. Patient has some difficulty tolerating pressure. Patient is advised to practice wearing PAP daily while awake, lower pressure with or without sleeping on sides, activate PAP ramp feature, have blower checked to make sure pressure is set as prescribed and return to sleep center for consideration of auto-adjusting PAP therapy. Dry mouth is a normal occurrence for people who just start out on PAP therapy because they are not used to air blowing in to the throat to hold open. Dry mouth is exacerbated for people who wear nasal PAP mask and whose jaw drops open during sleep. Not only does this create a much less efficient therapy because of leakage, it also causes dry mouth. There are a couple solutions to help prevent this type of problem. A simple solution would be to wear a chinstrap which essentially holds the jaw in place. A second solution would be a switch to a full face mask which covers both the nose and mouth. Although this is another easy solution, using a full face mask for some could seem claustrophobic or confining. There is no silver bullet solution as no single mask is right for everybody. Sometimes it takes a bit of experimentation to find a PAP mask which best meets the patient's needs as well as fits comfortably. Another tactic is to use a humidifier on your PAP machine. Most new PAP machines have integrated humidifiers. Humidification is blakely when dealing with symptoms of dry mouth because the humidifier can supply both warm and room temperate air. Even a small amount of humidity in the airflow will help nasal passages to stay hydrated. If a person is using both a full face mask and a PAP machine with a heated humidifier and is still experiencing dry mouth, an ill-fitted PAP mask might be causing the problem. Leakage can be caused by a mask that is to large or small, the wrong style mask, the cushion is degraded or simply because the mask's straps aren't adjusted correctly. If leakage occurs, dry air from the room can leak in while humidification escapes. The result is reduced humidification within the circuit and resulting in dry throat and mouth. Finally, beyond factors involving the PAP machine and mask, dry mouth can also be caused or worsened by dehydration. The general recommendation to during eight 8 oz. glasses of water a day might be too little for many people. When people drink large amounts of coffee or other caffeine beverages, or sweat a lot during the day, making sure to rehydrate is an important part of PAP therapy. Patient tends to take of the PAP mask during sleep. We reassured patient that this is common. We address all other areas of headgear/nasal interface problems, especially nasal congestion. Patient can use humidification +/- chinstrap, put low-pressure alarm on blower unit to awaken patient to reposition mask and set alarm at night for patient to check headgear. Provided the patient with a list of local home care stores where positive airway pressure (PAP) units, accouterments, and services are available. Home care store selection is based on patient's insurance carrier. Patient will setup an appointment with [facility] for supplies and pressure adjustments. A major predictor of success with use of PAP is follow-up with both the respiratory supplier and the treating physician. The respiratory supplier optimally will follow-up within two weeks after starting use while the treating physician optimally will follow-up within 90 days after starting therapy to assess adherence and effectiveness of treatment. The download results can show the treating physician information about adherence to treatment, residual AHI while on treatment and presence of large mask leakage. This information is especially helpful if the patient has residual sleepiness despite treatment. General information on sleep disordered breathing, evaluation of sleep disordered breathing, treatment with PAP therapy, and living with PAP therapy were covered. We discussed with the patient the impact of weight on: Sleep disordered breathing Prediabetes Hypertension Mixed hyperlipidemia CHOCO Hypogonadism We discussed with the patient the benefit of PAP therapy on: Sleep disordered breathing ADHD Prediabetes Hypertension CHOCO Polycythemia vera Educated the patient on sleep hygiene measures. Relaxing rituals to rest easy, understanding foods with positive and negative impact on sleep, creating a peaceful sleep environment, timing of exercise, using herbal sleep aids, and practicing sleep-friendly meditation were covered. To determine how much sleep is needed, the patient will assess where he falls on the spectrum, examine what lifestyle factors such as work schedules and stress are affecting the quality and quantity of sleep. In general, adults need 7-9 hours of sleep. Educated the patient regarding foods that promote sleep. These include but are not limited to cherries, bananas, toast, oatmeal, and warm milk. Educated the patient regarding foods and drinks to avoid before bedtime. These include but are not limited to aged cheese, chocolate, spicy foods, tomato-based sauces, soy, ginseng tea and processed meat. Advocated influenza vaccination annually and pneumonia vaccination MAXIMO. Advocated weight loss through diet and exercise. Patient's ideal body weight according to height and gender is up to 185 lbs. Encouraged patient to adjust caloric intake to maintain/achieve ideal body weight, emphasizing on fruits, vegetables, whole grains, and fat-free or low-fat products. These include lean meats, poultry, fish, beans, eggs, and nuts and foods that are low in saturated fats, trans-fats, cholesterol, salt (sodium), and glycemic index. Stressed the importance of regular exercise up to the patient's capacity limits. In this case, we recommend 20 min daily walking, 2 days a week of resistance training. Patient to monitor BP daily and bring records to PCP for further management. Follow-up: 1 month, June 2022 [email or web address] Not available 05/28/2022 11:02:18 Plan of Treatment Reminders Order Date Submit Date Provider Last Modified By Organization Details Last Modified Time Details Appointments None recorded. Lab None recorded. Referral sleep medicine referral - Has been on bipap and feeling bloated and full of air in belly in the morning. 2022 023 Satya Elizabeth MD, [address] [place], [address], 18:57:51 Procedures None recorded. Surgeries None recorded. Imaging US, groin - Hernia? Left groin burning and pain. 2022 [email or web address] [place] [address], [address], [address], [place], [address], 08:49:00 Medication Orders None recorded. Patient TargetsNo targets recorded. Patient Instructions Encounter Date Encounter Id Patient Instructions Last Modified By Organization Details Last Modified Time 05/10/2022 [id number] FU in 6 mo htn, diabetes, gastric sleeve, obese-post sleeve, ADHD, KAREN on bipap [email or web address] Not available 05/13/2022 16:50:48 Reason for Referral Sleep Medicine Referral for Sleep apnea Has been on bipap and feeling bloated and full of air in belly in the morning. Referring Physician: Kalyn Flanagan, Family Medicine, Encounter Date: 05/10/2022 Results Created Date Observation Date Name Description Value Unit Range Abnormal Flag Note LastModifiedBy Organization Detail LastModifiedTime 03/13/1903/13/2021 HEMOG LOBIN A1C HA1C 6.4 % 4.0-6. 0 high Diabe celeste Scree matias Crite cornell: <5.7% Consi stent with absen ce of diabe celeste 5.7-6 .4% Consi stent with incre ased risk for diabe celeste (pred iabet es) >OR=6 .5% Consi stent with diabe celeste REFER ENCE: Diabe celeste Care 2016, 39(Espinoza ppl.1 ):s13 -s22 Not Available [facility] (Lab) [address] [place], [address], 03/13/2021 21:31:24 03/13/19 22 03/13/2021 COMPR EHENS ANILA METAB OLIC PANEL carbon dioxide 26 mmol/ L 22-30 Not Available [facility] (Lab) [address] [place], [address], 03/13/2021 19:24:30 03/13/19 22 03/13/2021 COMPR EHENS ANILA METAB OLIC PANEL sodium 137 mmol/ L 137-14 5 Not Available [facility] (Lab) [address] [place], [address], 03/13/2021 19:24:30 03/13/19 22 03/13/2021 COMPR EHENS ANILA METAB OLIC PANEL potassium 4.5 mmol/ L 3.5-5. 1 Not Available [facility] (Lab) [address] [place], [address], 03/13/2021 19:24:30 03/13/19 22 03/13/2021 COMPR EHENS ANILA METAB OLIC PANEL chloride 103 mmol/ L 98-107 Not Available [facility] (Lab) [address] [place], [address], 03/13/2021 19:24:30 03/13/19 22 03/13/2021 COMPR EHENS ANILA METAB OLIC PANEL agap 12.5 mmol/ L 14-22 low Not Available [facility] (Lab) [address] [place], [address], 03/13/2021 19:24:30 03/13/19 22 03/13/2021 COMPR EHENS ANILA METAB OLIC PANEL glucose 111 mg/dL 70-99 high Not Available [facility] (Lab) [address] [place], [address], 03/13/2021 19:24:30 03/13/19 22 03/13/2021 COMPR EHENS ANILA METAB OLIC PANEL BUN 13 mg/dL 8-19 Not Available [facility] (Lab) [address] [place], [address], 03/13/2021 19:24:30 03/13/19 22 03/13/2021 COMPR EHENS ANILA METAB OLIC PANEL creatinine 1.07 mg/dL 0.66-1 .25 Not Available [facility] (Lab) [address] [place], [address], 03/13/2021 19:24:30 03/13/19 22 03/13/2021 COMPR EHENS ANILA METAB OLIC PANEL aspartate aminotransfe rase 62 U/L 15-46 high Not Available [facility] (Lab) [address] [place], [address], 03/13/2021 19:24:30 03/13/19 22 03/13/2021 COMPR EHENS ANILA METAB OLIC PANEL GFR >60 Refer ence Range : [place] ge GFR Healt hy Adult : >60 mL/mi n/1.7 3 m2 Chron ic Kidne y Disea se: 15-60 mL/mi n/1.7 3 m2 Kidne y Failu re: <15/m L/min /1.73 m2 www.n iddk. nih.g ov The MDRD study equat ion has not been valid ated in child amanuel <18 years of age; pregn ant women ; the elder ly >85 years of age; or in some racia l or ethni c subgr oups, such as Hispa nics. Outsi de the valid ated ariane eters , estim ated GFR is less accur ate, requi ring clini yinka judgm ent on a case- by-ca se basis . Clini yinka inter preta tion for other races and ages must be made by the clini max. The MDRD study equat ion has not been valid ated for the evalu ation of serum creat inine relat ed to nutri dilip l statu s or medic ation usage . For perso ns <18 years of age, a pedia tric GFR calcu lator is avail able on the F websi te: https ://aubree w.ethel abdiy.o rg/pr ofess ional s/kdo qi/gf r_cal culat or Not Available [facility] (Lab) [address] [place], [address], 03/13/2021 19:24:30 03/13/19 22 03/13/2021 COMPR EHENS ANILA METAB OLIC PANEL alkaline phosphatase 71 U/L 38-[address] [facility] (Lab) [address] [place], [address], 03/13/2021 19:24:30 03/13/19 22 03/13/2021 COMPR EHENS ANILA METAB OLIC PANEL alanine aminotransfe rase 49 U/L 0-50 Not Available [facility] (Lab) [address] [place], [address], 03/13/2021 19:24:30 03/13/19 22 03/13/2021 COMPR EHENS ANILA METAB OLIC PANEL bilirubin, total 0.90 mg/dL 0.20-1 .30 Not Available [facility] (Lab) [address] [place], [address], 03/13/2021 19:24:30 03/13/19 22 03/13/2021 COMPR EHENS ANILA METAB OLIC PANEL globulin 3.7 g/dL 2.6-4. 2 Not Available [facility] (Lab) [address] [place], [address], 03/13/2021 19:24:30 03/13/19 22 03/13/2021 COMPR EHENS ANILA METAB OLIC PANEL calcium 8.5 mg/dL 8.4-10 .2 Not Available [facility] (Lab) [address] [place], [address], 03/13/2021 19:24:30 03/13/19 22 03/13/2021 COMPR EHENS ANILA METAB OLIC PANEL total protein 8.2 g/dL 6.3-8. 2 Not Available [facility] (Lab) [address] [place], [address], 03/13/2021 19:24:30 03/13/19 22 03/13/2021 COMPR EHENS ANILA METAB OLIC PANEL albumin 4.5 g/dL 3.4-5. 0 Not Available [facility] (Lab) [address] [place], [address], 03/13/2021 19:24:30 03/13/19 22 03/13/2021 COMPR EHENS ANILA METAB OLIC PANEL A/G ratio 1.2 ratio 1.0-2. 0 Not Available [facility] (Lab) [address] [place], [address], 03/13/2021 19:24:30 03/13/19 22 03/13/2021 LIPID PANEL cholesterol 180 mg/dL 140-19 9 NIH MARSHA NSUS RECOM MENDA TION FOR ZANE STERO L: ADULT CHILD LOW RISK: <200 <170 BORDE RLINE : <200- 239 ----- HIGH RISK: >240 >200 Not Available [facility] (Lab) [address] [place], [address], 03/13/2021 19:24:20 03/13/19 22 03/13/2021 LIPID PANEL triglyceride s 275 mg/dL 0-150 high NIH MARSHA NSUS REPOR T RECOM MENDA TION FOR TRIGL YCERI AZEB: ADULT CHILD LOW RISK: <150 ----- BODER LINE: 150-1 99 ----- HIGH RISK: >200 ----- Not Available [facility] (Lab) [address] [place], [address], 03/13/2021 19:24:20 03/13/19 22 03/13/2021 LIPID PANEL HDL cholesterol 29 mg/dL 40- low Not Available [facility] (Lab) [address] [place], [address], 03/13/2021 19:24:20 03/13/19 22 03/13/2021 LIPID PANEL LDL cholesterol, calculated 96 mg/dL 0-130 NIH MARSHA NSUS REPOR T RECOM MENDA TIONS FOR LDL: ADULT CHILD LOW RISK <130 <110 (OPTI MAL LDL) <100 ----- BORDE RLINE : 130-1 59 ----- HIGH RISK: >160 >130 A TRIGL YCERI DE RESUL T >400 INVAL IDATE S THE CALCU LATIO N FOR LDL FRACT IONAT ION - THE LDL RESUL T WILL NOT BE REPOR ANDERSON. Not Available [facility] (Lab) [address] [place], [address], 03/13/2021 19:24:20 03/13/19 22 03/13/2021 TEST NOT PERFO RMED tnp see commen t no speci men sent for micro album in Not Available [facility] (Lab) [address] [place], [address], 03/13/2021 18:52:41 04/09/19 23 04/09/2022 XR, esoph [facility] [address] [place] [address] Patien t Name: BRAD WALTON Access ion #: [id number] Sex: M : 1980 3 Locati on: RAD Attend ing Physic rashmi: ANTONIETA FLANAGAN Orderi Physic rashmi: ANTONIETA FLANAGAN LE Exam Date: 023 9:08 AM Exam Name: XR BARIUM SWALLO W Admitt ing Diagno sis(es ): RADIOL OGY REPORT - FINAL EXAM: XR BARIUM SWALLO W HISTOR Y: NAUSEA WITH VOMITI NG 41-yea r-old male with gastri c sleeve surger y 8 weeks ago, diffic ulty eating and drinki ng. COMPAR AKSHAT: None availa ble. TECHNI QUE: Fluoro scopic examin ation of the esopha cas was perfor med using double contra st techni que, with the patien t in uprigh t positi on on the fluoro table. The patien t took gas flory ls follow ed by thick liquid barium orally . The esopha cas was evalua anderson fluoro scopic ally. Multip le fluoro scopic spot films were obtain ed. Fluoro time: 1.1 minute s; DAP: 10.192 Gy.cm2 ; 29 fluoro scopic spot views were perfor med. Page 1 of 2 [facility] Karri solorio Name: BRAD WALTON Access ion #: [id number] Sex: M : 1980 3 Exam Date: 023 9:08 AM Exam Name: XR BARIUM SWALLO W Admitt ing Diagno sis(es ): FINDIN GS: No esopha geal divert icula, strict ures, ulcera tions, varice s, or intral uminal fillin g defect s are identi fied. No eviden ce of hiatal hernia . Contra st flows readil y into the stomac h. Gastro esopha geal reflux is visual ized multip le times. Some contra st flows throug h the stomac h into the duoden um, but most of the ingest ed oral contra st is retain ed in the proxim al stomac h. There is no extral uminal extrav asatio n of contra st. There are postop erativ e change s of gastri c sleeve . IMPRES FRANK: 1. Postop erativ e change s of gastri c sleeve with a small amount of oral contra st passin g throug h the stomac h into the duoden um. The majori ty of the ingest ed contra st is retain ed in the proxim al stomac h. This appear ance may be due to a partia l obstru ction at the level of the gastri c body. 2. Multip le episod es of gastro esopha geal reflux visual ized fluoro scopic ally. Create d and electr onical ly signed by: Cruz erwin MD Signed Date: 12:03 PM (CT) Dictat ed by: Cruz erwin MD DD: 12:03 PM (CT) DT: 12:03 PM (CT) Page 2 of 2 [email or web address] [facility] (Imaging) [address] [place], [address], 05/13/2022 16:54:58 05/11/19 23 08/23/2019 polys omnog bar, titra tion study No observ ation record ed. [email or web address] Not Available 2022 16:54:58 Result Notes Documentation Provider Name and Address Organization Details Recorded Time Xr, Esophagram : [facility] [address] [place] [address] Patient Name: BRAD WALTON Sex: M : 1980 Location: [facility] Attending Physician: KALYN FLANAGAN Ordering Physician: KALYN FLANAGAN Exam Date: 04/09/2022 9:08 AM Exam Name: XR BARIUM SWALLOW Admitting Diagnosis(es): RADIOLOGY REPORT - FINAL EXAM: XR BARIUM SWALLOW HISTORY: NAUSEA WITH VOMITING 41-year-old male with gastric sleeve surgery 8 weeks ago, difficulty eating and drinking. COMPARISON: None available. TECHNIQUE: Fluoroscopic examination of the esophagus was performed using double contrast technique, with the patient in upright position on the fluoro table. The patient took gas crystals followed by thick liquid barium orally. The esophagus was evaluated fluoroscopically. Multiple fluoroscopic spot films were obtained. Fluoro time: 1.1 minutes; DAP: 10.192 Gy.cm2; 29 fluoroscopic spot views were performed. Page 1 of 2 [facility] Patient Name: BRAD WALTON Sex: M : 1980 Exam Date: 04/09/2022 9:08 AM Exam Name: XR BARIUM SWALLOW Admitting Diagnosis(es): FINDINGS: No esophageal diverticula, strictures, ulcerations, varices, or intraluminal filling defects are identified. No evidence of hiatal hernia. Contrast flows readily into the stomach. Gastroesophageal reflux is visualized multiple times. Some contrast flows through the stomach into the duodenum, but most of the ingested oral contrast is retained in the proximal stomach. There is no extraluminal extravasation of contrast. There are postoperative changes of gastric sleeve. IMPRESSION: 1. Postoperative changes of gastric sleeve with a small amount of oral contrast passing through the stomach into the duodenum. The majority of the ingested contrast is retained in the proximal stomach. This appearance may be due to a partial obstruction at the level of the gastric body. 2. Multiple episodes of gastroesophageal reflux visualized fluoroscopically. Created and electronically signed by: Cruz Cuellar MD Signed Date: 04/09/2022 12:03 PM (CT) Dictated by: Cruz Cuellar MD (CT) (CT) Page 2 of 2 Kalyn Flanagan NP [address], [place], [place], [address], [employer] 05/13/2022 16:54:58 Problems Name Problem SNOMED Code Status Onset Date Resolution Date Notes Provider Name and Address Organization Details Recorded Time Hypertens anila disorder 02859588 Active 2019 Not Available [facility] [employer] 3 00:47:10 Sleep apnea 47952297 Active 2019 Not Available [facility] 3 00:47:11 COVID-19 709503216 Active 2019 Not Available [facility] 3 00:47:11 Type 2 diabetes mellitus 29631434 Completed 201903/31/2020 Kalyn Flanagan NP [address], [place], [address] , [employer] 3 07:48:09 Hyperinsu linism 87065555 Active 2019 Not Available [facility] 3 00:47:11 Morbid obesity 196209596 Active 2020 Not Available [facility] 3 00:47:09 Male hypogonad ism 76011079 Active 2020 Not Available [facility] 3 00:47:10 Polycythe maritza vera (clinical ) 705361172 Active 2020 Not Available [facility] 3 00:47:09 Smoker 71015926 Active 2021 Not Available [facility] 3 00:47:11 Testoster one level below reference range 521916967 Active 2021 Not Available [facility] 3 00:47:09 History of sleeve gastrecto my 25042147856 9107 Active 2021 Not Available [facility] 3 00:47:09 Attention deficit hyperacti vity disorder, predomina ntly inattenti ve type 44333790 Active 2021 Not Available [facility] 3 00:47:10 Pityriasi s versicolo r 72998945 Active 2021 Not Available [facility] 3 00:47:10 Essential hypertens ion 13776068 Active 2021 Not Available [facility] 3 00:47:10 Hyperlipi demia 49125777 Active 2022 Kalyn Flanagan NP [address], [place], [address] , [employer] 3 07:43:40 Type 2 diabetes mellitus 01234161 Active 2022 Kalyn Flanagan NP [address], [address], [place], [address] , [employer] 3 07:48:09 Long-term current use of testoster one replaceme nt therapy 55257736216 101 Active 2022 Kalyn Flanagan NP [address], [address], [place], [address] , [employer] 3 07:49:46 History of bariatric surgical procedure 102228880 Active 2022 Kalyn Flanagan NP [address], [address], [place], [address] , [employer] 3 08:00:33 Type 2 diabetes mellitus without complicat ion 820928091 Active 2022 Kalyn Flanagan NP [address], [address], [place], [address] , [employer] 3 16:49:08 Obstructi ve sleep apnea syndrome 93435657 Active 2022 Satya Elizabeth MD [address], [address], [place], [address] , [employer] 3 10:46:16 Left inguinal pain 07204404551 593974 Active 2022 Kalyn Flanagan NP [address], [place], [address] , [employer] 3 09:21:02 Notes:Medical History: ADHD COVID infection 01/2020, 01/2021 Nicotine use Obesity with very severe OSAHS, AHI = 109, on BPAP c/o IVRC Prediabetes Hypertension Mixed hyperlipidemia CHOCO Hypogonadism Polycythemia vera Pityriasis versicolor Procedure History: T&A 1988 Right hand tendon/ligament repair 2002 Right CTS release 2014 Gastric sleeve surgery 12/2021 Problem Notes None recorded. Procedures Surgical History Date Name Laterality Status Provider Name and Address Organization Details Recorded Time 01/24/20 22 laparoscopic sleeve gastrectomy completed Not Available [facility] 04/25/2022 00:42:26 02/25/19 15 Carpal tunnel surgery completed Not Available [facility] 04/25/2022 00:42:26 02/25/18 95 Remove tonsils and adenoids completed Not Available [facility] 04/25/2022 00:42:26 Imaging Results None recorded. Procedure Notes None recorded. Medical Equipment None Reported. Allergies Allergen ID Allergen Name Allergen Category Reaction Reaction Severity Criticality Documentation Date Start Date Code Code System Note Provider Name and Address Organization Details Recorded Time 57224 Aloe vera preparati on food,medi cation Not available Not available Not available 05/10/2022 62304 0 RxNorm Kalyn Bennett RN null, [place] [facility] [employer] [employer] 3 10:20:17 Medications Name Sig Start Date Stop Date Status Note LastModified by Organization Details LastModified Time amoxicill in 500 mg capsule TAKE 1 CAPSULE BY MOUTH TWICE DAILY WITH MEALS FOR 10 DAYS 07/04 completed Not Available Not Available Not Available bupropion HCl SR 150 mg tablet,12 hr sustained -release Take 1 tablet twice a day by oral route for 90 days. active Not Available Not Available No t Available azithromy yesy 250 mg tablet TAKE 2 TABLETS (500 MG) BY ORAL ROUTE ONCE DAILY FOR 1 DAY THEN 1 TABLET (250 MG) BY ORAL ROUTE ONCE DAILY FOR 4 DAYS 03/16 completed Not Available Not Available Not Available fluconazo le 150 mg tablet TAKE 1 TABLET BY MOUTH EVERY DAY FOR 1 DAY 02/07 completed Not Available Not Available Not Available benzonata te 200 mg capsule TAKE 1 CAPSULE BY MOUTH THREE TIMES DAILY NEEDED FOR COUGH 02/07 completed Not Available Not Available Not Available hydrocodo ne 5 mg-acetam inophen 325 mg tablet TAKE 1 TABLET BY MOUTH EVERY 4 TO 6 HOURS NEEDED FOR PAIN 02/07 completed Not Available Not Available Not Available gonadorel in HCl 100 mcg solution for injection 50 units 2 x weekly 02/07 completed Not Available Not Available Not Available potassium chloride ER 10 mEq tablet,ex tended release TAKE 1 TAB BY MOUTH ONCE DAILY WITH A MEAL AND FUROSEMI DE active Not Available Not Available No t Available metronida zole 500 mg tablet Take 1 tablet twice a day by oral route. active Not Available Not Available No t Available ciproflox acin 500 mg tablet TAKE 1 TABLET BY MOUTH EVERY 12 HOURS 02/07 completed Not Available Not Available Not Available omeprazol e 40 mg capsule,d elayed release Take 1 capsule twice a day by oral route. active Not Available Not Available No t Available tramadol 50 mg tablet Take 1 tablet every 6 hours by oral route. active Not Available Not Available No t Available terbinafi ne HCl 250 mg tablet Take 1 tablet every day by oral route for 14 days. active Not Available Not Available No t Available famotidin e 20 mg tablet TAKE 1 TABLET BY MOUTH TWICE DAILY active Not Available Not Available No t Available baclofen 10 mg tablet TAKE 1 TABLET BY MOUTH THREE TIMES DAILY 05/10 completed Not Available Not Available Not Available dexametha sone 2 mg tablet TAKE 3 TABLETS( 6MG) BY MOUTH A ONE TIME DOSE active Not Available Not Available No t Available lisinopri l 10 mg tablet TAKE 1 TABLET BY MOUTH ONCE DAILY active Not Available Not Available No t Available losartan 25 mg tablet TAKE 1 TABLET BY MOUTH EVERY DAY active Not Available Not Available No t Available dextroamp hetamine- amphetami ne 15 mg tablet TAKE 1 TABLET BY MOUTH EVERY DAY IN THE MORNING active Not Available Not Available No t Available codeine 10 mg-guaife nesin 100 mg/5 mL oral liquid TAKE 10 ML BY MOUTH EVERY 12 HOURS NEEDED FOR COUGH 02/07 completed Not Available Not Available Not Available lisinopri l 5 mg tablet TAKE 1 TABLET BY MOUTH ONCE DAILY 01/25 completed Not Available Not Available Not Available furosemid e 20 mg tablet TAKE 1 TABLET BY MOUTH ONCE DAILY IN THE MORNING active Not Available Not Available No t Available nystatin 100,000 unit/gram topical powder APPLY TOPICALL Y TO THE AFFECTED AREA TWICE DAILY active Not Available Not Available No t Available methylpre dnisolone 4 mg tablets in a dose pack FOLLOW PACKAGE DIRECTIO NS 03/14 completed Not Available Not Available Not Available albuterol sulfate HFA 90 mcg/actua tion aerosol inhaler INHALE 2 PUFFS BY MOUTH EVERY 4 HOURS NEEDED FOR WHEEZING OR COUGH active Not Available Not Available No t Available losartan 50 mg-hydroc hlorothia zide 12.5 mg tablet TAKE 1 TABLET BY MOUTH EVERY DAY active Not Available Not Available No t Available metformin ER 500 mg tablet,ex tended release 24 hr TAKE 1 TABLET BY MOUTH EVERY DAY active Not Available Not Available No t Available phentermi ne 37.5 mg capsule TAKE 1 CAPSULE BY MOUTH EVERY DAY active Not Available Not Available No t Available metoclopr amide 10 mg tablet TAKE 1 TABLET BY MOUTH EVERY 6 HOURS active Not Available Not Available No t Available amoxicill in 875 mg-potass ium clavulana te 125 mg tablet TAKE 1 TABLET BY MOUTH EVERY 12 HOURS FOR 10 DAYS 03/14 completed Not Available Not Available Not Available dextroamp hetamine- amphetami ne ER 15 mg 24hr capsule,e xtend release TAKE 1 CAPSULE BY MOUTH IN THE MORNING 07/04 completed Not Available Not Available Not Available Asprin Ec Low Dose 81 mg tablet,de layed release Take 1 tablet every day by oral route. 2019 active Not Available Not Available Not Avai lable ciproflox acin 0.3 %-dexamet hasone 0.1 % ear drops,natividad pension SHAKE LIQUID AND INSTILL 4 DROPS TO LEFT EAR EVERY 12 HOURS FOR 7 DAYS 03/14 completed Not Available Not Available Not Available testoster one 1 ml 1x weekly 2022 active From [facility] Not Available Not Available Not Available BD Ultra-Fin e Short Pen Needle 31 gauge x 5/16 USE DIRECTED WITH OZEMPIC WEEKLY 05/11 completed Not Available Not Available Not Available Victoza 3-Jono 0.6 mg/0.1 mL (18 mg/3 mL) subcutane ous pen injector ADMINIST ER 1.2 MG UNDER THE SKIN DAILY FOR 1 WEEK. INCREASE TO 1.8 MG DAILY 03/31 completed Not Available Not Available Not Available Ozempic 0.25 mg or 0.5 mg (2 mg/1.5 mL) subcutane ous pen injector INJECT 0.25 MG UNDER THE SKIN ONCE WEEKLY FOR 4 WEEKS, THEN INCREASE TO 0.5 MG WEEKLY 02/07 completed Not Available Not Available Not Available COVID-19 test specimen collectio n TEST DIRECTED TODAY 02/07 completed Not Available Not Available Not Available Wegovy 0.25 mg/0.5 mL subcutane ous pen injector Inject 0.25 mg every week by subcutan eous route. 01/30 completed Not Available Not Available Not Available Vitals Date Recorded Body mass index (BMI) Body height Oxygen saturation Body temperature Body weight Systolic And Diastolic Provider Name and Address Organization Details Last Updated DateTime 2 48.8 kg/m2 180.34 cm 99 % 98.8 [degF] 953035. 33 g 165/112 mm[Hg] Not Available [employer] 3 00:43:00 Date Recorded Body height Body mass index (BMI) Body weight Respiratory rate Oxygen saturation Body temperature Heart rate Pain severity - 0-10 verbal numeric rating [Score] - Reported Systolic And Diastolic Provider Name and Address Organization Details Last Updated DateTime 3 180.34 cm 40.6 kg/m2 430846. 08 g 16 /min 96 % 98.7 [degF] 102 /min 0 140/90 mm[Hg] Kalyn Bennett RN [facility] [employer] [facility] 3 10:20:54 Date Recorded Body height Body mass index (BMI) Body weight Heart rate Respiratory rate Provider Name and Address Organization Details Last Updated DateTime 05/28/2022 180.34 cm 39.6 kg/m2 770914.2 3 g 89 /min 15 /min Satya Elizabeth MD [address] [facility], [facility] [address], [place], [address] , [facility] [employer] [facility] 3 11:01:45 Date Recorded Body temperature Heart rate Oxygen saturation Systolic And Diastolic Provider Name and Address Organization Details Last Updated DateTime 05/28/2022 98.5 [degF] 89 /min 95 % 140/88 mm[Hg] Radha Rabago MA [facility] 3 10:47:05 Date Recorded Body height Body mass index (BMI) Body weight Body temperature Heart rate Oxygen saturation Systolic And Diastolic Provider Name and Address Organization Details Last Updated DateTime 3 180.34 cm 36.8 kg/m2 685537. 39 g 98.5 [degF] 94 /min 96 % 144/102 mm[Hg] Clare Medrano MA [facility] 3 08:46:10 Date Recorded Body mass index (BMI) Body height Oxygen saturation Heart rate Respiratory rate Body temperature Body weight Systolic And Diastolic Provider Name and Address Organization Details Last Updated DateTime 2 47 kg/m2 180.34 cm 98 % 88 /min 16 /min 98.2 [degF] 956138. 63 g 140/90 mm[Hg] Not Available [facility] 3 00:43:00 Social History Question Answer Notes LastModified by Organization Details LastModified Time Tobacco Smoking Status Current Every Day Smoker Not Available [facility] 04/25/2022 00:40:35 Do You Have An Advance Directive? No Information not available 05/10/2022 Is Blood Transfusion Acceptable In An Emergency? No Not In [place] Information not available 05/10/2022 What Is Your Level Of Caffeine Consumption? Heavy Information not available 05/10/2022 How Much Tobacco Do You Chew? None [id number] Information not available 04/25/2022 What Is Your Code Status? DNR Information not available 05/10/2022 In The 14 Days Before Symptom Onset, Have You Had Close Contact With A Laboratory-confi rmed COVID-19 While That Case Was Ill? No Information not available 05/10/2022 In The 14 Days Before Symptom Onset, Have You Had Close Contact With A Person Who Is Under Investigation For COVID-19 While That Person Was Ill? No Information not available 05/10/2022 How Many Days Of Moderate To Strenuous Exercise, Like A Brisk Walk, Did You Do In The Last 7 Days? 6 Information not available 05/10/2022 Have There Been Any Changes To Your Family Or Social Situation? No Information not available 05/10/2022 Are There Any Guns Present In Your Home? No Information not available 05/10/2022 Do You Use Insect Repellent Routinely? Yes Information not available 05/10/2022 Where Do You Live? [facility] Information not available 05/10/2022 Do You Have A Medical Power Of Internal Sales Engineer? No Information not available 05/10/2022 How Many Children Do You Have? 5 Information not available 05/10/2022 Do You Have Any Pets? Yes Information not available 05/10/2022 Do You Use Protection During Sex? No Information not available 05/10/2022 What Is Your Relationship Status? Information not available 05/10/2022 Do You Use Your Seat Belt Or Car Seat Routinely? Yes Information not available 05/10/2022 Are You Sexually Active? Yes Information not available 05/10/2022 Do You Have Smoke And Carbon Monoxide Detectors In Your Home? Yes Information not available 05/10/2022 Are You Passively Exposed To Smoke? No Information not available 05/10/2022 Are There Any Smokers In Your House? Yes Information not available 05/10/2022 How Much Tobacco Do You Smoke? 0.25 PPD 3-4 Daily [id number] Information not available 04/25/2022 Do You Participate In Social Media? Yes Information not available 05/10/2022 Do You Use Sunscreen Routinely? Yes Information not available 05/10/2022 Have You Recently Traveled Abroad? No Information not available 05/10/2022 Are You Currently In School? No Information not available 05/10/2022 Do You Have Any Dietary Restrictions? Yes Information not available 05/10/2022 Sex: Unknown Functional Status Question Answer Note LastModified by Organizat ion Details LastModified Time Do you use any illicit or recreational drugs? No Information not available 05/10/2022 What is your level of alcohol consumption? None Information not available 05/10/2022 Do you or have you ever used smokeless tobacco? Never used smokeless tobacco [id number] Information not available 04/25/2022 Are you currently employed? Yes Information not available 05/10/2022 Do you or have you ever used e-cigarettes or vape? Never used electronic cigarettes [id number] Information not available 04/25/2022 What is your exercise level? Moderate Information not available 05/10/2022 Mental Status Question Answer Note LastModified by Organization D etails LastModified Time Do you feel stressed (tense, restless, nervous, or anxious, or unable to sleep at night)? [id number] Information not available 05/10/2022 Family History Relationship Description Onset Age of this Age Resolved Age Notes LastModified by Organization Details LastModified Time Father Malignant neoplasm of lung [id number] Not available 04/25/2022 00:42:28 Father Diabetes mellitus [id number] Not available 04/25/2022 00:42:28 Mother Diabetes mellitus [id number] Not available 04/25/2022 00:42:28 Mother Hypertensive disorder [id number] Not available 04/25/2022 00:42:28 Brother Diabetes mellitus [id number] Not available 04/25/2022 00:42:28 Notes:diabetes is prevalent Medical History Condition Response BLINDNESS N RHEUMATIC FEVER N KIDNEY STONES N BLADDER PROBLEMS N OTHER # 1 N POLIO N LUNG DISEASE/DISORDER N RADIATION / CHEMOTHERAPY N COPD N Other # 2 N BLOOD DISEASES N SURGERY N EAR OR HEARING PROBLEMS N MUMPS N FEMALE PROBLEMS / INFECTIONS N BOWEL PROBLEMS N DEPRESSION (INCLUDING POST ) N STROKE/TIA N THYROID DISEASE N ULCERS N BENIGN PROSTATIC HYPERPLASIA N MEASLES N CERVICALGIA N TB SKIN TEST N MYOCARDIAL INFARCTION N PARAPELGIA N OBESITY Y GERD/NAUSEA N ANEURYSM N URINARY/BLADDER/KIDNEY PROBLEMS N INPATIENT PSYCH CARE N CORONARY ARTERY DISEASE (CAD) N MENIERE'S DISEASE N ADDICTION CONCERNS N ENDOMETRIOSIS N USE OF BLOOD THINNERS N SKIN PROBLEMS N EMPHYSEMA N GASTROINTESTINAL DISORDER N MUSCLE,JOINT OR BONE PROBLEMS N GASTROINTESTINAL BLEEDING N BLOOD CLOTS N ASTHMA N CATARACTS N ERECTILE DYSFUNCTION N GI PROBLEMS N CHF N Low Testosterone N NEUROPATHY N INFERTILITY N AIDS/HIV N FRACTURES N VISION/EYE PROBLEMS N LIVER DISEASE N MALE HYPOGONADISM N HYPERTENSION N ANXIETY DISORDER N BLOOD TRANSFUSION N ANEMIA/BLOOD DISORDER N CHRONIC EAR INFECTIONS N BRONCHITIS N TUBERCULOSIS N GLAUCOMA N DIVERTICULITIS N SLEEP APNEA N CHICKENPOX N ALLERGIES/HAYFEVER N INFECTIOUS DISEASE N PROSTATE N HEART ARRHYTHMIA N INSOMNIA N HIGH CHOLESTEROL / HYPERLIPIDEMIA N EYE PROBLEMS N HYPERTHYROIDISM N EATING DISORDER N NEUROLOGICAL PROBLEMS N EDEMA N CHRONIC PAIN SYNDROME N HYPOTHYROIDISM N CONSTIPATION N CAROTID BLOCKAGE N BACK / NECK PROBLEMS N HAVE YOU BEEN HOSPITALIZED OR SEEN IN [facility] IN THE PAST YEAR ? N ATHEROSCLEROSIS N BREAST PROBLEMS N DIALYSIS N ECZEMA N FIBROMYALGIA N OSTEOPOROSIS N ARTHRITIS N NO SIGNIFICANT PAST MEDICAL HISTORY N APPENDICITIS N DIABETES, TYPE N BAD TEETH N HEARTBURN / REFLUX N ADD/ADHD N AUTISM SPECTRUM DISORDER (ASD) N HEPATITIS / LIVER DISEASE N PULMONARY DISEASE N GOUT N SLEEP DISORDER N ALZHEIMER'S DISEASE N PAIN N DEMENTIA N HERPES N SEIZURES/EPILEPSY N HEADACHES/MIGRAINES N VASCULAR DISEASE N PACEMAKER N DIZZINESS N HEART DISEASE/HEART PROBLEMS N KIDNEY DISEASE N SCARLET FEVER N MULTIPLE SCLEROSIS N DEVELOPMENTAL OR BEHAVIORAL DISORDERS N MENTAL DISORDER/ILLNESS N CANCER: SPECIFY N CARDIAC ARRHYTHMIA N PNEUMONIA N ANESTHESIA COMPLICATIONS N ATRIAL FIBRILLATION N PULMONARY EMBOLISM N AUTOIMMUNE DISEASE N Immunizations Vaccine Type Date Status Note Provider Nam e and Address Organization Details Recorded Time COVID-19, mRNA, LNP-S, PF, 100 mcg/0.5mL dose or 50 mcg/0.25mL dose 1 completed Not Available [facility] 04/25/2022 00:54:08 Influenza, split virus, quadrivalent, preservative 0 completed Not Available [facility] 04/25/2022 00:54:08 Influenza, split virus, quadrivalent, PF 0 completed Not Available [facility] 04/25/2022 00:54:09 Past Encounters Encounter ID Performer Location Encounter Start Date Encounter Closed Date Diagnosis/Indication Diagnosis SNOMED-CT Code Diagnosis ICD10 Code Diagnosis IMO Codes Diagnosis Note [id number] [facility] [address] [place] [address] 04/28/2020 00:00:00 04/28/2020 13:57:26 [id number] [facility] [address] [place] [address] 05/26/2020 00:00:00 05/26/2020 11:16:15 [id number] [facility] [address] [place] [address] 06/27/2020 00:00:00 06/27/2020 14:50:41 [id number] [facility] [address] [place] [address] 08/01/2020 00:00:00 08/01/2020 09:13:21 [id number] Moe Leonardo MD [place] [place] [facility] [place] [address] [place] [address] 01/30/2021 00:00:00 01/30/2021 14:20:45 [id number] Moe Leonardo MD [facility] [place] [facility] [address] [place] [address] 03/16/2021 00:00:00 03/16/2021 08:39:43 [id number] Epifanio Mclaughlin MD [facility]_[address] [address] 02/07/2022 00:00:00 02/07/2022 16:46:50 [id number] Kalyn Flanagan NP [facility]_[address] [address] 05/10/2022 10:06:50 05/10/2022 11:02:02 Morbid obesity 433580453 E66.01 Gastric sleeve Dec 2021 In [facility]. Type 2 marilyn betes mellitus without complication 326189153 E11.9 BS levels ok. No longer on metformin. A1C 5.1 Per patient report. History of sleeve gastrectomy [id number] 55039 Z90.3 Losing weight well. Omeprazole 40 mg po daily. Hypertensive disorder 38 222252 I10 Loser pike 50 mg-hctz 12.5 mg pro daily. Sleep apnea 89623580 G47 .30 Sleep medicine referral made. Needing adjustment to BiPap machine. [id number] Satya Elizabeth MD [facility] [place] [address] [address] 05/28/2022 10:15:19 05/29/2022 08:23:59 Obstructive sleep apnea syndrome 98409330 G47.33 [id number] Kalyn Flanagan NP [facility]_[address] [address] 08/01/2022 08:29:13 08/01/2022 12:24:50 Left inguinal pain 0839999152 9855693 R10.32 US left groin ordered. 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 Health Concerns Section Related Observation LastModified by Organization Detai ls LastModified Time None Recorded Concern Status LastModified by Organization Details LastModified Time None Recorded Advance Directives Directive N: Payers Insurance Date Sequence Insurance Name Policy Number Policy Duenas Covered Member ID Duenas Member ID Guarantor Name 11/05/2022 1 [place] [id number] Brad Walton [id number] Brad Walton Notes Date Note Type Note Provider Name and Address Organization Details Recorded Time 05/10/2022 text/html Here with for Weight- down 50 lbs in 3 mo.Gastric sleeve post dilation- Eating well since esophageal dilation. Sleeping better and having more energy. ADHD- [place] flower a bariatric surgeon says ER form of med is ok. Seeing Laura cristofer Psych appt on 05/14/22. No need to change current meds as psych will take over on Saturday. Essential htn- stable. DM- Metformin ER 500 mg.KAREN- bipap. Feeling like the pressure is too much and blowing air into abdomen- feeling bloated When waking up and belching first thing. Kalyn Flanagan NP [address] [place] [address], [address], [facility] [employer] 05/13/2022 16:55:22 05/28/2022 text/html Primary care/Referring provider: Kalyn Flanagan NP At home since 2019, the patient uses a [employer]Med AirCurve 10 autoset unit with heated humidification. The patient does not need the ramp to start low and go up slowly on the pressure anymore. There is some xerostomia in a.m. There is no hose/mask condensation with water.The patient wears a [employer] large AirFit F20 full face mask without chin strap. There is no claustrophobia, no nostril/nose bridge irritation, no facial rash, no facial numbness, no nosebleeding. His BMI has dropped from 53 during sleep study in 2019 to 40 today after gastric sleeve surgery in 12/2021. Since 04/2022, the patient started to feel the pressure is too high and he would pull the mask off in the middle of his sleep unaware. The patient feels more refreshed upon waking and daytime alertness is improved. Energy levels are sustained for the remainder of the day. At home, the patient sleeps from and wakes up with an alarm. Snoring: heavy, since .Snorting: noChoking: yesCoughing: yesGasping: yesGagging: yesSighing: yesWitnessed apnea: yesTwitching or jerking of leg(s), arm(s), body, head: noTeeth grinding: noTeeth clenching: noSleeptalking: noSleepwalking: noSleep crying: noBedwetting: noTongue/lip/gum/cheek biting: noSleeping with open mouth: yesSleep paralysis: noHypnagogic hallucinations: noHypnopompic hallucinations: noVivid dreams: yesDifficulty with sleep onset: noDifficulty with sleep maintenance: yesSleep interruptions: nocturia x 1Patient wakes up with: fatigue, xerostomia, sore throat, hoarse voice, headaches, disorientation, cognitive impairment, mobility impairment, dexterity impairmentDaytime cataplexy: noMorning hypersomnolence: yesAfternoon hypersomnolence: yesCaffeine sources in diet: coffee 164 oz per day, soda 10 cans per day, chocolate 1 candy bar per day Associated medical and psychiatric conditions:Congestive heart failure: noCoronary artery disease: noMyocardial infarction: noHypertension: yesStroke: noBronchial asthma: noChronic obstructive pulmonary disease: noDepression: noBipolar disorder: noAnxiety: noPanic disorder: noPosttraumatic stress disorder: noAttention deficit and hyperactivity disorder: yesObsessive Compulsive disorder: noSchizophrenia: noSchizoaffective disorder: noPersonality disorder: noChronic analgesic use: noChronic sedative/hypnotic use: no EPWORTH SLEEPINESS SCALE (ESS) CHANCE OF DOZING SCORE0 = would never doze1 = slight chance of dozing2 = moderate chance of dozing3 = high chance of dozing SITUATION AND CHANCE OF DOZINGSitting and reading - 0Watching television - 0Sitting inactive in a public place (e.g. a theater or meeting) - 0As a passenger in a car for an hour without a break - 2Lying down to rest in the afternoon when circumstances permit - 1Sitting and talking to someone - 0Sitting quietly after lunch without alcohol - 0In a car, while stopped for a few minutes in the traffic - 0TOTAL SCORE 3Subjectively, patient has a slight chance of dozing. Satya Elizabeth MD [address], [facility] [address], [place], [address], [facility] [employer] [facility] 05/28/2022 11:03:23 08/01/2022 text/html Here for hernia Having some left lower abd pain and burning. Off on for 1 mo and then opened pool this weekend and almost couldn't get out of the pool.Not feeling bulge, no lump.Has a constant burning nerve type pain.Pain noticed with bending down and crossing legs.No change in BM.Urinating fine. no back pain.Diet normal. Did ju-jitsu class right after pain started, but pain flared days after the class. Kalyn Flanagan NP [address], [facility] [address], [place], [address], [employer] [facility] 08/02/2022 08:05:27
--- OUTSIDE RECORDS SUMMARY | 2025-02-03 21:16 | XMS_ITS | Patient Health Record ---
Author Organization [facility] [employer] Address [address] [facility] [address] [place] [address] Care Team Providers Care Furniture Technician Name Role Phone Laura Martinez Unavailable [phone] Reason For Referral No Information Medications Medication SIG (Take, Route, Frequency, Duration) Notes Start Date End Date Status Amphetamine-Dextroamph etamine 15 MG Tablet Oral 01/03/2023 Active Omeprazole 40 MG Capsule Delayed Release Oral 01/03/2023 Active Nystop 938866 UNIT/GM Powder External 01/03/2023 Active Testosterone *Pick strength-form from [employer]ugg for eRX* 01/03/2023 Active Immunizations Vaccine Route [...] Insured Coverage Start Date Coverage End Date [facility] [address] [place] [address] [id number] DORA WALTON Self - patient is the insured Medical (General) History Surgical History Surgery Date(Month/Year) Tonsilectomy/adenoids 04/16/1989 Other 01/18/2022
--- OUTSIDE RECORDS SUMMARY | 2025-02-03 21:16 | XMS_ITS | Data Portability ---
Author Organization [facility] LOUI[facility]ivian Villarreal Address [address] [place] [address] Care Team Providers Care Pond Sawyer Name Role Phone KADEN SCHAEFER Sleep Medicine ROBERT BLANC Primary Care Provider Assessment No assessment recorded. Plan of Treatment Reminders Order Date Submit Date Provider Last Modified By Organization Details Last Modified Time Details Appointments None recorded. Lab None recorded. Referral None recorded. Procedures None recorded. Surgeries None recorded. Imaging None recorded. Medication Orders Medrol (Jono) 4 mg tablets in a dose pack 2024 025 [id number] [address] [place], [id number], 5 15:14:53 triamcinolo ne acetonide 0.1 % topical cream 2024 025 [facility] #78543, [address], [place], [place], [id number], 5 15:14:52 mupirocin 2 % topical ointment 2024 025 [facility] #63345, [address] [place] [place], [id number], 5 15:14:52 amoxicillin 500 mg capsule [email or web address] [place] [address] [facility] #49622, [address] [place] [place], [place], [id number], 5 15:13:14 amoxicillin 500 mg capsule 2022 023 [email or web address] [facility] #57268, [address], [place], [place], [id number], 5 15:13:14 furosemide 20 mg tablet 2019 020 [facility], [address] [place] [address], [address], 3 12:18:54 Klor-Con 10 mEq tablet,exte nded release 2019 020 [facility], [address] [place] [address], [id number], 3 12:18:57 Patient TargetsNo targets recorded. Patient Instructions Encounter Date Encounter Id Patient Instructions Last Modified By Organization Details Last Modified Time 10/21/2019 [id number] deciding about using medicines to quit smoking ssuthan Not available 10/21/2019 16:19:00 Quitting Tobacco : Care Instructions ssuthan Not available 10/21/2019 16:19:00 When You Want to Lose Weight: Care Instructions ssuthan Not available 10/21/2019 16:19:00 11/23/2019 [id number] deciding about using medicines to quit smoking ssuthan Not available 11/23/2019 15:33:38 Quitting Tobacco : Care Instructions ssuthan Not available 11/23/2019 15:33:38 leg and ankle edema: care instructions ssuthan Not available 11/23/2019 15:33:38 albumin-creatini n e ratio: about this test ssuthan Not available 11/23/2019 15:33:38 sleep apnea: car e instructions ssuthan Not available 11/23/2019 15:33:38 05/29/2022 [id number] strep throat: care instructions Not available 06/08/2022 10:26:52 10/17/2023 [id number] strep throat: care instructions Not available 10/17/2023 13:57:35 10/19/2024 [id number] poison chris, oak, and sumac: care instructions Not available 12/07/2024 11:10:18 Reason for Referral None Reported. Results Created Date Observation Date Name Description Value Unit Range Abnormal Flag Note LastModifiedBy Organization Detail LastModifiedTime 03/13/19 22 03/13/2021 Hemog lobin A1c/H emogl obin. total in Blood by HPLC hemoglobin A1C/hemoglob in.total in blood text: 4.0-6. 0 high Diabe celeste Scree matias Crite cornell: <5.7% Consi stent with absen ce of diabe celeste 5.7-6 .4% Consi stent with incre ased risk for diabe celeste (pred iabet es) >OR=6 .5% Consi stent with diabe celeste REFER ENCE: Diabe celeste Care 2016, 39(Espinoza ppl.1 ):s13 -s22 Not Available Not Available 10/19/2024 15:07:24 Result Notes None recorded. Problems Name Problem SNOMED Code Status Onset Date Resolution Date Notes Provider Name and Address Organization Details Recorded Time Insect bite - wound 245667868 Active 2018 ALVA Tran Attn: Accounting, [address] [place], [address], [facility] 9 12:24:34 Elevated blood-pre ssure reading without diagnosis of hypertens ion 922303226 Active 2018 ALVA Tran Attn: Accounting, [address] [facility], [place], [address], [facility] 9 12:25:00 Essential hypertens ion 21595362 Active 2019 Esther strauss, [place] - [facility] 0 17:40:26 Chronic cough 15313700 Active 2019 Robert Blanc MD Attn: Accounting, [address] [facility], [place], [address], [facility] 0 10:35:54 Microalbu minuria 637982546 Active 2019 On losartan Robert Blanc MD Attn: Accounting, [address] [place], [address], [place] [facility] 0 12:59:18 Obstructi ve sleep apnea syndrome 95733248 Active 2019 Robert Blanc MD Attn: Accounting, [address] [place], [address], [place] [facility] 0 15:59:00 Gastroeso phageal reflux disease without esophagit is 177069503 Active 2019 Robert Blanc MD Attn: Accounting, [address] [place], [address], [facility] 0 15:59:01 Tobacco dependenc e syndrome 57591613 Active 2019 Robert Blanc MD Attn: Accounting, [address] [place], [address], [facility] 0 16:18:45 Problem Notes None recorded. Procedures Surgical History Date Name Laterality Status Provider Name and Address Organization Details Recorded Time Carpal tunnel surgery completed Robert Blanc MD Attn: Accounting,[address] [place], [address], [facility] 07/14/2019 10:38:31 tonsilectomy/ adenoids completed Robert Blanc MD Attn: [facility],[address] [place], [address], [facility] 07/14/2019 10:38:43 Imaging Results None recorded. Procedure Notes None recorded. Medical Equipment None Reported. Allergies Allergen ID Allergen Name Allergen Category Reaction Reaction Severity Criticality Documentation Date Start Date Code Code System Note Provider Name and Address Organization Details Recorded Time 908637 aloe extract food,medi cation other severe Not available 05/23/2017 83809 [facility] JESSICA Martinez, [place] - [facility] 8 16:44:41 Medications Name Sig Start Date Stop Date Status Note LastModified by Organization Details LastModified Time amoxicillin 500 mg capsule TAKE 1 CAPSULE BY MOUTH TWICE DAILY WITH MEALS FOR 10 DAYS 10/19 completed Not Available Not Available Not Available Klor-Con 10 mEq tablet,exte nded release Take 1 tablet every day by oral route with meals. 05/31 completed Not Available Not Available Not Available clindamycin HCl 300 mg capsule 08/07 completed Not Available Not Available Not Available azithromyci n 250 mg tablet 07/13 completed Not Available Not Available Not Available ibuprofen 800 mg tablet 08/07 completed Not Available Not Available Not Available fluconazole 150 mg tablet TAKE 1 TABLET BY MOUTH EVERY DAY FOR 1 DAY 10/16 completed Not Available Not Available Not Available benzonatate 200 mg capsule TAKE 1 CAPSULE BY MOUTH THREE TIMES DAILY NEEDED FOR COUGH 10/16 completed Not Available Not Available Not Available Nystop 100,000 unit/gram topical powder APPLY TOPICALLY TO THE AFFECTED AREA TWICE DAILY 10/16 completed Not Available Not Available Not Available famotidine 40 mg tablet TAKE 1 TABLET BY MOUTH DAILY active Not Available Not Available No t Available metronidazo le 500 mg tablet TAKE 1 TABLET BY MOUTH TWICE DAILY 10/16 completed Not Available Not Available Not Available ciprofloxac in 500 mg tablet TAKE 1 TABLET BY MOUTH EVERY 12 HOURS 10/16 completed Not Available Not Available Not Available sulfamethox azole 800 mg-trimetho prim 160 mg tablet 08/07 completed Not Available Not Available Not Available omeprazole 40 mg capsule,del ayed release 10/16 completed Not Available Not Available Not Available doxycycline monohydrate 100 mg tablet 08/07 completed Not Available Not Available Not Available tramadol 50 mg tablet TAKE 1 TABLET BY MOUTH EVERY 6 HOURS 10/16 completed Not Available Not Available Not Available triamcinolo ne acetonide 0.1 % topical cream APPLY THIN LAYER TOPICALLY TO THE AFFECTED AREA TWICE DAILY FOR 7 DAYS active Not Available Not Available No t Available famotidine 20 mg tablet 1 tab BID OPRN 11/22 completed Not Available Not Available Not Available baclofen 10 mg tablet TAKE 1 TABLET BY MOUTH THREE TIMES DAILY 10/16 completed Not Available Not Available Not Available dexamethaso ne 2 mg tablet 07/13 completed Not Available Not Available Not Available cephalexin 500 mg capsule TAKE 1 CAPSULE BY MOUTH EVERY 6 HOURS FOR 5 DAYS active Not Available Not Available No t Available neomycin-po lymyxin-dex ameth 3.5 mg/mL-10,00 0 unit/mL-0.1 % eye drops 08/07 completed Not Available Not Available Not Available lisinopril 10 mg tablet Take 1 tablet every day by oral route. 06/29 completed Not Available Not Available Not Available losartan 25 mg tablet Take 1 tablet by mouth once daily 05/31 completed Not Available Not Available Not Available dextroamphe tamine-amph etamine 15 mg tablet TAKE 1 TABLET BY MOUTH EVERY DAY IN THE MORNING 10/16 completed Not Available Not Available Not Available codeine 10 mg-guaifene sin 100 mg/5 mL oral liquid TAKE 10 ML BY MOUTH EVERY 12 HOURS NEEDED FOR COUGH 10/16 completed Not Available Not Available Not Available lisinopril 5 mg tablet Take 1 tablet every day by oral route. 06/29 completed Not Available Not Available Not Available mupirocin 2 % topical ointment APPLY A SMALL AMOUNT TO THE AFFECTED AREA THREE TIMES DAILY active Not Available Not Available No t Available furosemide 20 mg tablet Take 1 tablet every day by oral route in the morning. 05/31 completed Not Available Not Available Not Available methylpredn isolone 4 mg tablets in a dose pack FOLLOW PACKAGE DIRECTION S active Not Available Not Available No t Available albuterol sulfate HFA 90 mcg/actuati on aerosol inhaler 09/13 completed Not Available Not Available Not Available losartan 50 mg-hydrochl orothiazide 12.5 mg tablet TAKE 1 TABLET BY MOUTH EVERY DAY 10/16 completed Not Available Not Available Not Available metformin ER 500 mg tablet,exte nded release 24 hr TAKE 1 TABLET BY MOUTH EVERY DAY 10/16 completed Not Available Not Available Not Available metoclopram peña 10 mg tablet TAKE 1 TABLET BY MOUTH EVERY 6 HOURS 10/16 completed Not Available Not Available Not Available dextroamphe tamine-amph etamine ER 15 mg 24hr capsule,ext end release TAKE 1 CAPSULE BY MOUTH IN THE MORNING 10/16 completed Not Available Not Available Not Available cyclobenzap rine 5 mg tablet 08/07 completed Not Available Not Available Not Available omeprazole 10/16 completed Not Available Not Available Not Available Vitals Date Recorded Body height Body mass index (BMI) Body weight Provider Name and Address Organization Details Last Updated DateTime 10/19/2024 180.34 cm 36.3 kg/m2 009136.02 g AISHA De Leon NP Attn: Accounting,[address] [facility], [place], [address], [facility] 10/19/2024 15:13:08 Date Recorded Body height Provider Name an d Address Organization Details Last Updated DateTime 10/21/2019 180.34 cm Glenis Vernon [facility] 0 15:27:58 Date Recorded Body height Provider Name an d Address Organization Details Last Updated DateTime 11/23/2019 180.34 cm Glenis Vernon, [facility] 0 13:33:45 Social History Question Answer Notes LastModified by [employer] Details LastModified Time Tobacco Smoking Status Former Smoker Quit in 3 months ago Connie Kumari MA [facility], [facility] 09/14/2019 15:20:26 What Was The Date Of Your Most Recent Tobacco Screening? 11/23/2019 Information not available 11/23/2019 How Much Tobacco Do You Smoke? 1 PPD Information not available 05/23/2017 On What Date Was Tobacco Cessation Counseling Provided? 11/23/2019 Information not available 11/23/2019 How Many Years Have You Smoked Tobacco? 20 Information not available 05/23/2017 Sex: Unknown Functional Status Question Answer Note LastModified by [employer] Details LastModified Time Do you or have you ever used smokeless tobacco? Never used smokeless tobacco Information not available 09/14/2019 Do you or have you ever used e-cigarettes or vape? Never used electronic cigarettes Information not available 09/14/2019 Mental Status None recorded. Family History Relationship Description Onset Age of this Age Resolved Age Notes LastModified by Organization Details LastModified Time Father Diabetes mellitus [email or web address] Not available 04/26 16:45:16 Father Hypertensive disorder [email or web address] Not available 04/26 16:46:05 Father Malignant neoplasm of lung ssuthan Not available 2019 10:37:37 Mother Diabetes mellitus [email or web address] Not available 04/26 16:45:24 Mother Hypertensive disorder [email or web address] Not available 04/26 16:46:05 Brother Hypertensive disorder [email or web address] Not available 04/26 16:46:05 Medical History Condition Response High Blood Pressure Y Immunizations Vaccine Type Date Status Note Provider Nam e and Address Organization Details Recorded Time COVID-19, mRNA, LNP-S, PF, 100 mcg/0.5mL dose or 50 mcg/0.25mL dose 05/19/2020 completed Heather Sheets RMA null, [place] [facility] 05/31/2022 12:18:31 COVID-19, mRNA, LNP-S, PF, 100 mcg/0.5mL dose or 50 mcg/0.25mL dose 05/21/2020 completed Heather Sheets RMA [place], [place] [facility] 05/31/2022 12:18:31 COVID-19, mRNA, LNP-S, PF, 100 mcg/0.5mL dose or 50 mcg/0.25mL dose 06/16/2020 completed Heather Sheets RMA [place], [place] [facility] 05/31/2022 12:18:31 Influenza, split virus, quadrivalent, PF 01/26/2020 completed RUDDY MelgarA [place], [place] [facility] 05/31/2022 12:18:31 Past Encounters Encounter ID Performer Location Encounter Start Date Encounter Closed Date Diagnosis/Indication Diagnosis SNOMED-CT Code Diagnosis ICD10 Code Diagnosis IMO Codes Diagnosis Note [id number] Jose Diggs MD [facility] [address] [place] [address] 05/23/2017 16:06:06 05/23/2017 17:59:27 Lesion of tongue 876520290 K14.9 Morbid obesity 609115094 E66.01 Essential hypertension 03194146 I10 [id number] Jose Diggs MD [place] [address] [facility] [place] [address] 08/07/2018 09:55:35 08/08/2018 09:17:30 Insect bite - wound 522005994 T14.8XXA Improved Elevated blood-pressure reading without diagnosis of hypertension 934992076 R03.0 Advised to monitor blood pressures goal <130/80 if consistent ly above goal-f/u 1 month for well visit and recheck bp Body mass index 40+ - severely obese 324066007 Z68.43 [id number] MD Stefanie MONTELONGO [address] [facility] [place] [address] 03/12/2019 09:13:00 03/13/2019 13:36:12 Essential hypertension 68284386 I10 Counseled on HTN and medication . Encouraged to monitor blood pressures with goal <130/80. Encouraged healthy diet and exercise. f/u 2 months Proteinuria 51118928 R80 .9 will do labs-if noted elevation of kidney function/p rotein will refer to nephro Body mass index 40+ - severely obese 463614525 Z68.43 Tobacco de pendence syndrome 82565440 F17.200 Hypersomnia 95564326 G47 .10 Call for sleep medicine referral when ready to address sleep apnea [id number] MD Stefanie MONTELONGO [address] [facility] [place] [address] 04/09/2019 16:49:31 04/10/2019 14:47:40 Body mass index 40+ - severely obese 474937724 Z68.43 Smaller portion. He feels he has healthy diet. Work on smaller portions. Essential hypertension 45115274 I10 No hx of HTN until recently. BP 160/98. On Lisinopril 5mg. Inc to 10mg. Nephrology 04/2019 for microalbum inuria. [id number] MD Stefanie Kim [address] [facility] [place] [address] 07/14/2019 08:57:15 07/15/2019 07:36:51 Chronic cough 80490605 R05 Probably due to acid irritation while sleepingEm pirically famotidine 20mg BID and f/uLoose weight, aviod acidic stuff. Sleep howard doreen disturbance 74084865 G47.9 Wakes up with non-restfu l sleep and easily doze off in daytime Tobacco de pendence syndrome 05646351 F17.200 Recommend to slow down and quit at the earliest- 1 PPD Long-term drug therapy 634392323 Z79.844 [id number] MD Stefanie Kim [address] [facility] [place] [address] 09/14/2019 15:03:47 09/15/2019 09:42:08 Essential hypertension 61009379 I10 Controlled [address] same with low salt diet Gastroesop hageal reflux disease without esophagitis 693159974 K21.9 Loose weight , avoid soda, spicy stuff, Stop smokingUse medication as prescribed Use famotidine PRN History an d physical examination, pre-employment 863245055 Z02.1 Form completed. Obstructiv e sleep apnea syndrome 03275934 G47.33 On autopap 44cmUnder care by Long-term drug therapy 548480748 Z79.160 [id number] MD Stefanie Kim [address] IM [address] [facility] [place] [address] 10/21/2019 09:11:55 10/22/2019 12:07:44 Morbid obesity 356894650 E66.01 Pt in the process meeting with bariatric team tomorrow.o n keto diet. Tobacco de pendence syndrome 74796977 F17.200 Did quit for last 2 months now! [id number] MD Stefanie Kim 14 IM [address] [facility] [place] [address] 11/23/2019 08:34:31 11/24/2019 09:53:56 Obstructive sleep apnea syndrome 58824433 G47.33 On BiPaPUnder care by Tobacco de pendence syndrome 95919019 F17.200 Did quit for last 2 months now- since july 2019! Microalbuminuria 7346652 06 R80.9 On losartan 25mg daily Gastroesop hageal reflux disease without esophagitis 381648975 K21.9 Loose weight , avoid soda, spicy stuff, Stop smokingUse medication as prescribed Use famotidine PR11/23/19 not using it anymoreFee ling well. Pre-surger y evaluation 683590828 Z01.818 Gastric sleeve in next 2 wks per the ptcleared pending labs EKG and CXR per the bariatric teamWiofe will be picking up the completed form. Edema of l ower extremity 353488470 R60.0 After long shifts recently? venous insufficie ncyr/O DVTDoppler wear compressio n stocking when on feetFew lasix [id number] Jose Diggs MD COUNT INCLUDES THE [facility] [employer] - [employer] [facility] [address] [place] [address] 05/29/2022 12:22:47 06/13/2022 15:13:00 Exposure to streptococcal pharyngitis 6142592957 105 Z20.818 -To take as directed.- Throw away toothbrush .-Increase fluid intake-Can use tylenol or ibuprofen for fever or pain-To alert clinic if any new or wosening symptoms. [id number] Jose Diggs MD COUNT INCLUDES THE [facility] [employer] - [employer] [facility] [address] [place] [address] 10/17/2023 11:55:01 10/17/2023 12:14:25 Exposure to streptococcal pharyngitis 1919216069 105 Z20.818 -To take as directed.- Throw away toothbrush .-Increase fluid intake-Can use tylenol or ibuprofen for fever or pain-To alert clinic if any new or wosening symptoms. [id number] Jose Diggs MD COUNT INCLUDES THE [facility] [employer] [facility] [place] [address] 10/19/2024 15:05:47 12/07/2024 15:18:20 Contact dermatitis caused by urushiol from [facility] 235955023 L23.7 6671241 -To take as directed.- To alert clinic if any new or worsening symptoms. Health Concerns Section Related Observation LastModified by Organization Detai ls LastModified Time None Recorded Concern Status LastModified by Organization Details LastModified Time None Recorded Advance Directives Directive None Recorded Payers Insurance Date Sequence Insurance Name Policy Number Policy Duenas Covered Member ID Duenas Member ID Guarantor Name 12/07/2024 1 [facility] - DOS ON OR AFTER 20 (MEDICAID REPLACEMENT - HMO) Brad Germain [id number] Brad Germain 11/07/2023 1 [facility] (MEDICARE REPLACEMENT/AD VANTAGE - HMO) Brad Germain [id number] Brad Germain 07/14/2019 2 *SELF PAY* Nel Germain 10/18/2023 1 [facility] (MEDICAID HMO) [id number] Brad Germain [id number] Brad Germain 12/28/2019 SLIDING FEE SCHEDULE - DISCOUNT Brad Germain 10/17/2023 1 [place] [id number] Brad Germain [id number] Brad Germain 05/23/[address] [facility] [address] Brad Germain [id number] Brad Germain 01/20/2018 1 [place] [facility] Brad Germain [id number] Brad Germain Notes Date Note Type Note Provider Name and Address Organization Details Recorded Time 0 text/html Generic HPI TemplateReported by Patientpt wants outr opinion on bariatric surgery- on auto pap also hypertensive with BMI 54, insurance agrees and has appt with his surgeon tomorrow.Did quit smoking few months now! Patient verbally consented for the phone visit Robert Blanc MD Attn: Accounting,[address] [place], [address], [facility] 10/21/2019 23:26:05 0 text/html Obstructive Sleep Apnea F/UReported by PatientHPIFor quality, patient reportsno loud snoringandno gasping for air. For onset/timing, patient reportsresolved. For associated symptoms, patient reportsno morning headache. For prior treatment, patient reportsbipap (18/08). For prior opinion, patient reportsneurology (). 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 11/23/19Here requesting clearance for bariatric surgery, yet to be scheduled , probably in 10-15 days per the ptThey will do all labs and X ray EKG ect. Already had EGDplanning gastric sleeve.Denies issue with anesthesia, exertional chest pain SOB.under care by an Endo from [place] for low testosterone (pt was informed about consequence of testosterone ect- He was also warned by his Bariatric team too) Pt also noticed some swelling in both lower extremities (L>R) Denies localised pain/rednessHas been doing long shifts last 2 wks hence couldn't fit his work boot in the [employer]... Denies SOB ect. Reflux/GERDReported by PatientHPIFor symptoms, patient reportsheartburn. For severity, patient reportswaking up at night. For duration, patient reportspresent for 6-12 months. For context, patient reportsnon-smokerandno drug/alcohol abuse. 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 Robert Blanc MD Attn: Accounting,[address] [place], [address], [facility] 11/23/2019 22:07:51 3 text/html Throat PainReported by PatientHPIFor associated symptoms, patient reportsfeverandlump in neckbut reportsno stress,no coughing with sputum,no choking,no throat tickle/itch,no globus sensation,no odynophagia,no dysphagia,no burping,no hoarseness,no neck/shoulder muscle tension,no weight loss,no loss of appetite,no dyspnea,no daytime somnolence,no ear pain,no ear infection,no nasal congestion,no postnasal drip,no oral mucosal lesion, andno hemoptysis. For location, patient reportsbilateral. For quality, patient reportssore. For severity, patient reportsmild. For onset/timing, patient reportsabrupt. For alleviating factors, patient reportstylenol.ROS as noted in the HPI Telemedicine visit with patient. Pt reports sore throat and fever that started 5 days ago. No N/V/D. No rash. Temp up to 101. Sick contacts of strep. (sons). AISHA De Leon NP Attn: Accounting,[address] [place], [address], [facility] 06/08/2022 10:27:51 4 text/html Throat PainReported by PatientHPIFor associated symptoms, patient reportsfeverbut reportsno stress,no coughing with sputum,no choking,no throat tickle/itch,no globus sensation,no odynophagia,no dysphagia,no burping,no hoarseness,no neck/shoulder muscle tension,no weight loss,no loss of appetite,no lump in neck,no dyspnea,no daytime somnolence,no ear pain,no ear infection,no nasal congestion,no postnasal drip,no oral mucosal lesion, andno hemoptysis. For location, patient reportsbilateral. For quality, patient reportssore. For severity, patient reportsmild. For onset/timing, patient reportsabrupt. For alleviating factors, patient reportstylenolandnsaids. ROS as noted in the HPI Pt reports sore throat, abdominal pain, and fever that started yesterday. Daughter + for strep. No N/V/. No rash. Pt does report diarrhea, however has multiple GI issues due to gastric sleeve surgery. Reports body aches and chills. AISHA De Leon NP Attn: Accounting,[address] [place], [address], [facility] 10/17/2023 13:58:02 5 text/html Pediatric Rash/Skin LesionReported by PatientHPIFor quality, patient reportsitchybut reportsnot painful. For aggravating factors, patient reportsclothingandexerci se. For location, patient reportschest,abdomen, andlegs. For onset/timing, patient [id number] ago. For context, patient reportsno new detergents or skin productsandno contacts with similar rash(plant). For associated symptoms, patient reportsno feverandno cold symptoms.ROS as noted in the HPI Phone visit with patient. Pt reports rash that started after working in [employer]. Reports it is on his arms, legs and back. + itching.No fever. No URI symptoms. AISHA De Leon NP Attn: Accounting,[address] [place], [address], [facility] 12/07/2024 11:10:41
--- OUTSIDE RECORDS SUMMARY | 2025-02-03 21:16 | XMS_ITS | Clinical Summary ---
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 Role Phone Unavailable Primary Care Provider [...] Years Used Date Smoking Tobacco: Former Cigarettes 0 Q uit: 05/18/2019 Smokeless Tobacco: Never Alcohol [...] of 3 - 19+ 3-dose series) 1999 DTAP/TDAP/TD VACCINES (1 - Tdap) 01/26/2013 01/26/20 13 DIABETES HBA1C Q 6 MONTHS 12/06/2017 06/06/2017 INFLUENZA VACCINE (#1) 2024 0, 01/26/2020, 01/15/2020, Additional history exists HPV VACCINES (No Doses Required) Completed Insurance BLUE ACCESS/TRUE BLUE PPO Advance Directives For more information, please contact: [phone] * Full Code (Latest Code Status on File) Date Activated Date Inactivated Comments 11/20/2019 5:41 AM 01/08/2020 9:40 AM
== END 2025-02-03 20:10 | disposition home or self-care (01) ==
PROVIDERS: Emergency Provider Registered Nurse; PCP Nurse Practitioner Adult Health
DX: M79.632 Pain in left forearm (principal); R22.32 Localized swelling, mass and lump, left upper limb; M77.8 Other enthesopathies, not elsewhere classified; F17.210 Nicotine dependence, cigarettes, uncomplicated; F17.220 Nicotine dependence, chewing tobacco, uncomplicated; I10 Essential (primary) hypertension; E66.9 Obesity, unspecified; Z68.41 Body mass index [BMI] 40.0-44.9, adult
CPT/HCPCS: 99213; G0463